=== PATIENT | female | born 1970 | race Caucasian/White ===

== ENCOUNTER 2020-06-26 16:55 | Inpatient (IN) | payer SELFPAY ==
--- NOTE | 2020-06-26 17:46 | ER Document Report ---
ED Medical Screen (RME) - General Chief Complaint: Chest Pain Stated Complaint: CHEST PAIN Time Seen by Provider: 06/26/20 17:39 - HPI Notes: 06/26/20 17:41 49-year-old female with a history of asthma and thalassemia presents to the emergency room for chest pain that started 2 days ago, last about 5 to 15 minutes, radiates down her arm goes to her neck and through her chest to her back. Pain is 4 out of 5. Patient states she has been expelled a pack a day for the last 30 years or so. Reports headache, nausea reports that she feels short of breath. Patient states she feels better if she eats something with her chest pain. Reports mother had 4 MIs and at 60 from a fatal MT, dad had an MT. Patient reports she did have a cholecystectomy, and a tubal ligation. Denies any trauma. States when she goes to the doctors usually her blood pressure is 140s 150s systolically. Patient does not take any blood pressure medication no history of diabetes or hypercholesterolemia I have greeted and performed a rapid initial assessment of this patient. A comprehensive ED assessment and evaluation of the patient, analysis of test results and completion of the medical decision making process will be conducted by additional ED providers. PHYSICAL EXAMINATION: GENERAL: Well-appearing, well-nourished and in no acute distress. HEAD: Atraumatic, normocephalic. EYES: Pupils equal round extraocular movements intact, conjunctiva are normal. NECK: Normal range of motion CV: s1, s2 regular LUNGS: Wheezing throughout Musculoskeletal: Normal range of motion NEUROLOGICAL: Normal speech, normal gait. SKIN: Warm, Dry, normal turgor, no rashes or lesions noted. 06/26/20 17:47 - Related Data Allergies/Adverse Reactions: codeine Allergy (Verified 06/26/20 17:34) erythromycin base Allergy (Verified 06/26/20 17:34) Penicillins Allergy (Verified 06/26/20 17:34) Past Medical History - Social History Chew tobacco use (# tins/day): No Drug Abuse: None Physical Exam - Vital signs Vitals: Temp Pulse Resp BP Pulse Ox 98.3 F 82 22 H 233/120 H 98 06/26/20 17:20 06/26/20 17:20 06/26/20 17:20 06/26/20 17:20 06/26/20 17:20 Course - Vital Signs Vital signs: Temp Pulse Resp BP Pulse Ox 98.3 F 82 22 H 233/120 H 98 06/26/20 17:20 06/26/20 17:20 06/26/20 17:20 06/26/20 17:20 06/26/20 17:20
--- NOTE | 2020-06-26 18:11 | RADIOLOGY REPORT (SQ) ---
EXAM DESCRIPTION: CHEST 2 VIEWS IMAGES COMPLETED DATE/TIME: 06/26/2020 6:04 pm REASON FOR STUDY: cp COMPARISON: None. EXAM PARAMETERS: NUMBER OF VIEWS: two views TECHNIQUE: Digital Frontal and Lateral radiographic views of the chest acquired. RADIATION DOSE: NA LIMITATIONS: none FINDINGS: LUNGS AND PLEURA: No opacities, masses or pneumothorax. No pleural effusion. MEDIASTINUM AND HILAR STRUCTURES: No masses or contour abnormalities. HEART AND VASCULAR STRUCTURES: Heart normal size. No evidence for failure. BONES: No acute findings. HARDWARE: None in the chest. OTHER: No other significant finding. IMPRESSION: NO ACUTE RADIOGRAPHIC FINDING IN THE CHEST. TECHNICAL DOCUMENTATION: JOB ID: [id number] 2010 [email or web address]- All Rights Reserved Reading location - IP/workstation name: [email or web address]
[2020-06-26 18:19] LABS: ABSOLUTE BASOPHILS # (AUTO) 0.1 10^3/uL (0.0-0.2); ABSOLUTE EOSINOPHILS # (AUTO) 0.2 10^3/uL (0.0-0.6); ABSOLUTE MONOCYTES (AUTO) 0.7 10^3/uL (0.1-1.4); ABSOLUTE NEUT (AUTO) 6.2 10^3/uL (1.7-8.2); BASOPHILS % (AUTO) 1.1 % (0-2); EOSINOPHILS % (AUTO) 2.2 % (0-6); HEMATOCRIT 41.1 % (36.0-47.0); HEMOGLOBIN 12.9 g/dL (12.0-15.5); LYMPHOCYTES % (AUTO) 22.2 % (13-45); MEAN CORPUSCULAR HGB CONC 31.5 g/dL (32.0-36.0); MONOCYTES % (AUTO) 7.1 % (3-13); PLATELET COUNT 200 10^3/uL (150-450); RED BLOOD COUNT 6.82 10^6/uL (3.72-5.28); RED CELL DISTRIBUTION WIDTH 17.2 % (11.5-14.0); SEGMENTED NEUTROPHILS % (AUTO) 67.4 % (42-78); TOTAL CELLS COUNTED % (AUTO) 100 %; WHITE BLOOD COUNT 9.1 10^3/uL (4.0-10.5)
[2020-06-26 18:38] LABS: ALBUMIN 4.3 g/dL (3.5-5.0); ALKALINE PHOSPHATASE 52 U/L (38-126); ANION GAP 6 (5-19); ASPARTATE AMINO TRANSFERASE 17 U/L (14-36); BILIRUBIN,DIRECT 0.1 mg/dL (0.0-0.4); BILIRUBIN,TOTAL 0.5 mg/dL (0.2-1.3); BLOOD UREA NITROGEN 12 mg/dL (7-20); CALCIUM 8.9 mg/dL (8.4-10.2); CARBON DIOXIDE 28 mmol/L (22-30); CHLORIDE 106 mmol/L (98-107); CREATINE KINASE 69 U/L (30-135); GLUCOSE 112 mg/dL (75-110); POTASSIUM 4.3 mmol/L (3.6-5.0); TOTAL PROTEIN 7.9 g/dL (6.3-8.2)
[2020-06-26 18:53] LABS: MEAN CORPUSCULAR VOLUME 60 fl (80-97)
[2020-06-26 18:55] LABS: ANISOCYTOSIS 1+
[2020-06-26 18:57] LABS: OVALOCYTES 1+; PLATELET COMMENT ADEQUATE; TARGET CELLS SLIGHT; TEAR DROP CELLS SLIGHT
[2020-06-26 19:20] LABS: CREATINE KINASE MB 0.89 ng/mL (<4.55); TROPONIN I 0.028 ng/mL
[2020-06-26] MEDS ORDERED: LABETALOL HCL INJ 20 MG/4 ML DISP.SYRIN IV ONE (19:35)
[2020-06-26] MEDS ORDERED: ONDANSETRON HCL INJ/PF 4 MG/2 ML SDV IV ONE ×2 (19:35→22:20)
[2020-06-26 19:56] LABS: APPEARANCE,URINE SLIGHTLY-CLOUDY; BILIRUBIN,URINE NEGATIVE (NEGATIVE); COLOR,URINE YELLOW; GLUCOSE, URINE NEGATIVE (NEGATIVE); KETONES,URINE NEGATIVE (NEGATIVE); PROTEIN,URINE 100 mg/dL (NEGATIVE); URINE SPECIFIC GRAVITY 1.018
--- NOTE | 2020-06-26 20:05 | EKG REPORT ---
SEVERITY:- ABNORMAL ECG - SINUS RHYTHM ABNRM R PROG, CONSIDER ASMI OR LEAD PLACEMENT NONSPECIFIC T ABNORMALITIES, LATERAL LEADS : Confirmed by: Lizett Mckeon MD 26-Jun-2020 20:04:47
--- NOTE | 2020-06-26 20:11 | ER Document Report ---
ED General - General Chief Complaint: Chest Pain Stated Complaint: CHEST PAIN Time Seen by Provider: 06/26/20 17:39 - HPI Notes: Chief complaint: Chest pain and headache History of present illness: 49-year-old female complains of 2-day history of ch est pain and intermittent dull headache. Patient complains of persistent squeezing discomfort center of her chest and left arm radiating through to back and says this is been waxing and waning in intensity over several days. Not related to exertion, breathing or movement. Also complains of persistent dull headache. No focal neurologic symptoms. Patient says she has not seen a doctor in "years". She notes she has had some intermittently elevated blood pressures in the past when she is checked this at [facility]. She is not on any treatment for this condition nor has she been in the past. She currently takes no prescription medications. She denies any known history of cardiac disease or stroke. Patient is a cigarette smoker. Family history is strongly positive for CAD and hypertension. Patient has no personal or familial history of thromboembolic disease. She has no personal history of high blood pressure. No history of diabetes. No history of hyperlipidemia. Rare consumption of alcohol. She admits occasional smoking marijuana. She specifically denies use of cocaine - Related Data Allergies/Adverse Reactions: codeine Allergy (Verified 06/26/20 17:34) erythromycin base Allergy (Verified 06/26/20 17:34) Penicillins Allergy (Verified 06/26/20 17:34) Past Medical History - General Information source: Patient, Friend - Yes could be just a minute I got to get a document here for forget what I am doing - Social History Smoking Status: Current Every Day Smoker Chew tobacco use (# tins/day): No Frequency of alcohol use: Occasional Drug Abuse: Marijuana Family History: CAD, Hypertension - Yet you need to go ahead and I have already asked him to do an IVC + Patient has homicidal ideation: No - Past Medical History Cardiac Medical History: Reports: None Pulmonary Medical History: Reports: None Neurological Medical History: Reports: None Endocrine Medical History: Denies: Hx Diabetes Mellitus Type 1, Hx Diabetes Mellitus Type 2 Malignancy Medical History: Reports: None GI Medical History: Reports: None Past Surgical History: Reports: Hx Cholecystectomy, Hx Tubal Ligation Review of Systems - Review of Systems Notes: Constitutional: Negative for fever. HENT: Negative for sore throat. Eyes: Negative for visual changes. Cardiovascular: As per HPI. Respiratory: Negative for shortness of breath. Gastrointestinal: Negative for abdominal pain, vomiting or diarrhea. Genitourinary: Negative for dysuria. Musculoskeletal: Negative for back pain. Skin: Negative for rash. Neurological: As per HPI. 10 point ROS negative except as marked above and in HPI. Physical Exam - Vital signs Vitals: Temp Pulse Resp BP Pulse Ox 98.3 F 82 22 H 233/120 H 98 06/26/20 17:20 06/26/20 17:20 06/26/20 17:20 06/26/20 17:20 06/26/20 17:20 - Notes Notes: GENERAL: Well-developed well-nourished appearing mildly uncomfortable. SKIN: Good turgor no rashes. HEAD: Normocephalic atraumatic. EYES: PERRLA. EOMI. Conjunctivae and sclerae clear. EARS: CANALS AND TMS CLEAR. NOSE: CLEAR. MOUTH: Moist mucosa. Good dentition. No stridor or edema. No drooling. NECK: Supple. No masses or thyromegaly. No adenopathy. Carotids 2+ without bruits. No JVD. BACK: Symmetrical without tenderness. CHEST: Respirations unlabored. Diffuse end expiratory wheezes bilaterally. HEART: Regular rhythm. No murmur gallop or rub. ABDOMEN: Soft nontender without masses, organomegaly or rebound. Bowel sounds normally active. No bruits. GENITALIA: Deferred. EXTREMITIES: No edema. No calf tenderness. Cap refill less than 1.5 seconds. Dorsalis pedis and posterior tibial pulses 3+ and symmetrical. NEUROLOGICAL: GCS 15. Alert and oriented x3. Normal gait. Fluent speech. Cranial nerves II through XII intact. Sensorimotor and cerebellar normal. Normal tone. PSYCHIATRIC: Appropriate affect. Course - Re-evaluation Re-evalutation: 06/27/20 00:56 Patient has significant coronary risk factors. EKG x2 shows no evidence of ST elevation GA. She has had 2- troponins. Her blood pressure worse severely elevated when she arrived she is not been on any treatment for this previously. She had values around 230/130. Her neurologic exam was normal but she is complaining of headache. Do noncontrast CT of the head which was negative. She also had some pain radiating into her back and for this reason she got a CTA of the chest. She had no evidence of dissection no pulmonary embolus. She received initially some labetalol and this had little influence on her blood pressure but did reduce her pulse rate in the 60s. She subsequently got some hydralazine IV. Again has had a little influence on her blood pressure. Her urine drug screen was remarkable for presence of THC there was no cocaine present. Patient subsequently was placed on IV nicardipine infusion. She responded well to this and dropped her systolic blood pressure to approximately 178. She experienced relief of her headache and her chest discomfort. We have subsequently been able to cut her back to 2.5 mg/h nicardipine infusion. We will speak with the ICU admission team regarding further care of this patient. - Vital Signs Vital signs: Temp Pulse Resp BP Pulse Ox 98.3 F 82 17 150/71 H 90 L 06/26/20 17:20 06/26/20 17:20 06/27/20 00:46 06/27/20 00:46 06/27/20 00:46 - Laboratory Result Diagrams: 06/26/20 17:52 06/26/20 17:52 Laboratory results interpreted by me: 06/26/20 06/26/20 06/26/20 17:52 17:52 19:40 RBC 6.82 H MCV 60 L MCH 19.0 L MCHC 31.5 L RDW 17.2 H Glucose 112 H Urine Protein 100 H Urine Urobilinogen 2.0 H - EKG Interpretation by Me Additional EKG results interpreted by me: 06/27/20 00:54 Twelve-lead EKG from 1702 hrs. Reviewed contemporaneously by me showing normal sinus rhythm with a rate of 86 and poor precordial R wave progression. She had nonspecific T wave changes. She had no significant ST elevation. There was no old tracing for comparison. Intervals were normal. Indication for study: Chest pain and hypertension. Second EKG was obtained and reviewed by me contemporaneously 2217 hrs. demon strating normal sinus rhythm with LVH and repolarization changes and a borderline QT prolongation of 486 ms. QRS axis 59 degrees. This was substantially unchanged from prior tracing. Indication for current study: Chest pain and hypertension. Critical Care Note - Critical Care Note Total time excluding time spent on procedures (mins): 65 - Multiple IV medications for BP and ultimately placed on IV nicardipine drip. Discharge - Discharge Clinical Impression: Hypertensive emergency without congestive heart failure Condition: Critical Disposition: ADMITTED INPATIENT Admitting Provider: Nusrat ([facility] Unit Admitted: ICU
[2020-06-26 20:15] LABS: URINE AMPHETAMINES SCREEN NEGATIVE; URINE BARBITURATES SCREEN NEGATIVE; URINE BENZODIAZEPINES SCREEN NEGATIVE; URINE COCAINE SCREEN NEGATIVE; URINE METHADONE SCREEN NEGATIVE; URINE PHENCYCLIDINE SCREEN NEGATIVE
[2020-06-26 20:19] LABS: URINE MARIJUANA (THC) SCREEN UNCONFIRMED POSITIVE
--- NOTE | 2020-06-26 20:38 | RADIOLOGY REPORT (SQ) ---
EXAM DESCRIPTION: RadLex: CT HEAD WITHOUT IV CONTRAST CLINICAL HISTORY: 49 years Female; [place]; TECHNIQUE: Noncontrast CT head. All CT scans at this facility use dose modulation, iterative reconstruction, and/or weight based dosing when appropriate to reduce radiation dose to as low as reasonably achievable. COMPARISON: None. FINDINGS: No acute hemorrhage or mass effect. No acute cortical edema. There is significant posterior fossa artifact. Distal carotid artery and left vertebral artery calcifications are noted. Visualized portions of paranasal sinuses and mastoids are clear. Visualized portions of the calvarium are within normal limits. IMPRESSION: 1. No acute hemorrhage or mass effect 2. Atherosclerosis
--- NOTE | 2020-06-26 20:44 | RADIOLOGY REPORT (SQ) ---
CLINICAL INDICATION: CP radiates to back, BP 223/130. . TECHNIQUE: CT arteriography was obtained of the chest with multiplanar MIP and/or 3-D angiographic reconstructions. This exam was performed according to our departmental dose-optimization program, which includes automated exposure control, adjustment of the mA and/or kV according to patient size and/or use of iterative reconstruction techniques. COMPARISON: None. CORRELATION: None. FINDINGS: Adequate contrast bolus. Average Hounsfield unit measurement within main pulmonary artery segment of 258. Artifact from venous opacification. Average Hounsfield unit measurement within aortic arch of 167 There is no evidence of pulmonary embolus. Thoracic aorta is of normal caliber. No aneurysm or dissection. The heart is of normal size. No pericardial effusion. No bulky mediastinal adenopathy. The lungs definite mild interstitial prominence is similar geographic distribution apicoposterior segment left upper lobe. Similar but less prominent changes right upper lobe. No dense consolidation. No effusion. No pneumothorax. Visualized abdominal contents demonstrate the gallbladder is surgically absent. Visualized bones are unremarkable. IMPRESSION: No evidence of pulmonary embolus. The aorta is of normal caliber without aneurysm or dissection. .
[2020-06-26] MEDS ORDERED: HYDRALAZINE HCL INJ/PF 20 MG/1 ML SDV IV ONE (21:17)
[2020-06-26] MEDS ORDERED: NICARDIPINE HCL RTU, ISO-OS 20 MG/200 ML RTUINJ IV PRN (22:11)
[2020-06-26] MEDS ORDERED: MORPHINE SULFATE 10 MG/ML INJ IV ONE (22:21)
[2020-06-27] MEDS ORDERED: IPRATROPIUM/ALBUTEROL 0.5-2.5 MG/3 ML AMPUL NEB ONE (01:43)
[2020-06-27] MEDS ORDERED: LISINOPRIL 10 MG TABLET PO ONE ×2 (01:45→13:07)
[2020-06-27] MEDS ORDERED: HYDRALAZINE HCL INJ/PF 20 MG/1 ML SDV IV PRN (02:07)
--- NOTE | 2020-06-27 02:17 | PDOC H&P ---
History of Present Illness Admission Date/PCP: 06/27/20 01:13 History of Present Illness: SHU GONZALES is a 49 year old female headache and general malaise and generalized nonspecific diffuse chest discomfort. Apparently have been going on for a couple of days. No fever. No cough or shortness of breath. No abdominal pain, nausea, or vomiting. She came to the ER and had extremely high blood pressure with a systolic in the 230s. CTA of the chest was negative for PE or dissection. EKG was suggestive of LVH but no signs of acute ischemia. I called the ICU and rather than admit the patient in the ICU decided to give her multiple doses of IV medications and even put her on a Cardene drip for several hours. When her blood pressure came down, they said she did not need to be in the ICU anymore. The hospitalist service was then consulted for admission. Past Medical History Cardiac Medical History: Reports: None Pulmonary Medical History: Reports: None Neurological Medical History: Reports: None Endocrine Medical History: Denies: Diabetes Mellitus Type 1, Diabetes Mellitus Type 2 Malignancy Medical History: Reports: None GI Medical History: Reports: None Past Surgical History Past Surgical History: Reports: Cholecystectomy, Tubal Ligation Social History Smoking Status: Current Every Day Smoker Electronic Cigarette use?: No Family History Family History: CAD, Hypertension - Yet you need to go ahead and I have already asked him to do an IVC + Parental Family History Reviewed: Yes Children Family History Reviewed: Yes Sibling(s) Family History Reviewed.: Yes Medication/Allergy Allergies/Adverse Reactions: codeine Allergy (Verified 06/26/20 17:34) erythromycin base Allergy (Verified 06/26/20 17:34) Penicillins Allergy (Verified 06/26/20 17:34) Review of Systems All systems: reviewed and no additional remarkable complaints except as stated - All systems were reviewed and were negative except as noted in the HPI Physical Exam Vital Signs: Temp Pulse Resp BP Pulse Ox 98.3 F 82 14 158/80 H 92 06/26/20 17:20 06/26/20 17:20 06/27/20 01:01 06/27/20 01:01 06/27/20 01:01 Intake & Output 06/25/20 06/26/20 06/27/20 06:59 06:59 06:59 Intake Total 27 Balance 27 Weight 79.5 kg General appearance: PRESENT: no acute distress, cooperative, disheveled, obese Head exam: PRESENT: atraumatic, normocephalic Eye exam: PRESENT: EOMI, PERRLA. ABSENT: conjunctival injection, nystagmus, scleral icterus Ear exam: PRESENT: normal external ear exam Mouth exam: PRESENT: moist, neck supple Teeth exam: PRESENT: poor dentation Throat exam: ABSENT: post pharyngeal erythema Neck exam: PRESENT: full ROM. ABSENT: carotid bruit, JVD, lymphadenopathy, meningismus, tenderness, thyromegaly Respiratory exam: PRESENT: clear to auscultation manfred, symmetrical, unlabored. ABSENT: accessory muscle use, chest wall tenderness, crackles, prolonged expiratory phas, rhonchi, tachypnea, wheezes Cardiovascular exam: PRESENT: RRR, +S1, +S2 Pulses: PRESENT: normal carotid pulses Vascular exam: PRESENT: normal capillary refill GI/Abdominal exam: PRESENT: normal bowel sounds, soft. ABSENT: distended, guarding, rebound, tenderness Extremities exam: ABSENT: clubbing, pedal edema Musculoskeletal exam: PRESENT: normal inspection. ABSENT: deformity Neurological exam: PRESENT: alert, awake, oriented to person, oriented to place, oriented to situation, CN II-XII grossly intact. ABSENT: motor sensory deficit Psychiatric exam: PRESENT: flat affect Skin exam: PRESENT: dry, warm Results Laboratory Results: 06/26/20 17:52 06/26/20 17:52 06/26/20 06/26/20 06/26/20 17:52 17:52 19:40 WBC 9.1 RBC 6.82 H Hgb 12.9 Hct 41.1 MCV 60 L MCH 19.0 L MCHC 31.5 L RDW 17.2 H Plt Count 200 Seg Neutrophils % 67.4 Sodium 140.4 Potassium 4.3 Chloride 106 Carbon Dioxide 28 Anion Gap 6 BUN 12 Creatinine 0.58 Est GFR ( Amer) > 60 Glucose 112 H Calcium 8.9 Total Bilirubin 0.5 AST 17 Alkaline Phosphatase 52 Total Protein 7.9 Albumin 4.3 Urine Color YELLOW Urine Appearance SLIGHTLY-CLOUDY Urine pH 7.0 Ur Specific Aldrich 1.018 Urine Protein 100 H Urine Glucose (UA) NEGATIVE Urine Ketones NEGATIVE Urine Blood NEGATIVE Urine RBC (Auto) 1 06/26/20 06/26/20 06/26/20 17:52 17:52 22:47 Creatine Kinase 69 CK-MB (CK-2) 0.89 Troponin I 0.028 0.030 Impressions: Chest X-Ray 06/26/20 17:39 IMPRESSION: NO ACUTE RADIOGRAPHIC FINDING IN THE CHEST. Chest/Abdomen CTA 06/26/20 17:46 IMPRESSION: No evidence of pulmonary embolus. The aorta is of normal caliber without aneurysm or dissection. . Head CT 06/26/20 19:34 IMPRESSION: 1. No acute hemorrhage or mass effect 2. Atherosclerosis Assessment and Plan - Diagnosis (1) Hypertensive emergency without congestive heart failure Is this a current diagnosis for this admission?: Yes Plan: After several doses of IV medications in several hours on the nicardipine drip, her blood pressure came down with a systolic of the 150s. Unfortunately, the antihypertensive effect of a nicardipine infusion can linger for up to 8 hours, so we will not know where her blood pressure has leveled off for some time. We will start her on some lisinopril and order some PRN hydralazine and see where her blood pressure settles. I encouraged her to quit smoking and get a primary care provider. She had some mild troponin elevation but with her LVH and sub stantially elevated blood pressure this is to be expected. No suspicion of acute coronary syndrome. - Time Time Spent with patient: 35 or more minutes Anticipated Discharge Disposition: Home, Self Care Anticipated Discharge Timeframe: within 48 hours
[2020-06-27] MEDS: ACETAMINOPHEN 325 MG TABLET PO PRN ×3 (09:02→20:00)
[2020-06-27] MEDS ORDERED: LISINOPRIL 10 MG TABLET PO SCH (10:00)
[2020-06-27] MEDS ORDERED: NIFEDIPINE 30 MG TAB.ER.24 PO SCH ×2 (10:15→12:00)
[2020-06-27] MEDS: NICOTINE 21 MG/24 HR PATCH.TD24 TD SCH (11:59)
--- NOTE | 2020-06-27 13:10 | Progress Note ---
Provider Note Provider Note: Patient admitted late this morning by Dr. Kennedy overnight. See H&P for full admission details. Patient seen and examined by me today as well. Blood pressure is persistently high today and seems to be climbing. I have added nifedipine and later in the morning also added chlorthalidone. I later increased lisinopril up to 20 mg daily with a now dose of 10 mg. We will continue closely monitoring blood pressure and making adjustments in oral regimen as needed. There is no role for IV blood pressure medications in her management at this time.
[2020-06-27] MEDS: CHLORTHALIDONE 25 MG TABLET PO SCH (13:26)
[2020-06-27] MEDS ORDERED: NIFEDIPINE 30 MG TAB.ER.24 PO ONE (14:28)
--- NOTE | 2020-06-27 17:53 | EKG REPORT ---
SEVERITY:- ABNORMAL ECG - SINUS RHYTHM PROBABLE LVH WITH SECONDARY REPOL ABNRM BORDERLINE PROLONGED QT INTERVAL : Confirmed by: Lizett Mckeon MD 27-Jun-2020 17:53:08
[2020-06-27] MEDS: HYDRALAZINE HCL 10 MG TABLET PO SCH ×2 (18:41→21:20)
[2020-06-28] MEDS: HYDRALAZINE HCL 25 MG TABLET PO SCH ×2 (00:23→05:07)
[2020-06-28 06:58] LABS: CHOLESTEROL 197.92 mg/dL (0-200); TRIGLYCERIDES 102 mg/dL (<150)
[2020-06-28 07:09] LABS: DIRECT LDL 123 mg/dL (<100)
[2020-06-28] MEDS: NIFEDIPINE 30 MG TAB.ER.24 PO SCH (09:03)
[2020-06-28] MEDS: ACETAMINOPHEN 325 MG TABLET PO PRN (09:03)
[2020-06-28] MEDS: NICOTINE 21 MG/24 HR PATCH.TD24 TD SCH (09:04)
[2020-06-28] MEDS: CHLORTHALIDONE 25 MG TABLET PO SCH (09:04)
[2020-06-28 09:22] LABS: ANION GAP 9 (5-19); BLOOD UREA NITROGEN 14 mg/dL (7-20); CALCIUM 9.6 mg/dL (8.4-10.2); CARBON DIOXIDE 24 mmol/L (22-30); CHLORIDE 105 mmol/L (98-107); GLUCOSE 105 mg/dL (75-110); POTASSIUM 4.1 mmol/L (3.6-5.0)
[2020-06-28] MEDS ORDERED: LEVOTHYROXINE SODIUM 0.025 MG TABLET PO ONE (09:30)
[2020-06-28] MEDS ORDERED: CHLORTHALIDONE 25 MG TABLET PO SCH (10:00)
[2020-06-28] MEDS ORDERED: LISINOPRIL 10 MG TABLET PO SCH (10:00)
[2020-06-28 10:07] LABS: ABSOLUTE BASOPHILS # (AUTO) 0.1 10^3/uL (0.0-0.2); ABSOLUTE EOSINOPHILS # (AUTO) 0.3 10^3/uL (0.0-0.6); ABSOLUTE LYMPHOCYTES (AUTO) 2.3 10^3/uL (0.5-4.7); ABSOLUTE MONOCYTES (AUTO) 0.6 10^3/uL (0.1-1.4); ABSOLUTE NEUT (AUTO) 5.4 10^3/uL (1.7-8.2); BASOPHILS % (AUTO) 1.4 % (0-2); EOSINOPHILS % (AUTO) 3.4 % (0-6); HEMATOCRIT 41.4 % (36.0-47.0); HEMOGLOBIN 13.1 g/dL (12.0-15.5); LYMPHOCYTES % (AUTO) 26.2 % (13-45); MEAN CORPUSCULAR HEMOGLOBIN 18.9 pg (27.0-33.4); MEAN CORPUSCULAR HGB CONC 31.5 g/dL (32.0-36.0); MEAN CORPUSCULAR VOLUME 60 fl (80-97); MONOCYTES % (AUTO) 6.9 % (3-13); PLATELET COUNT 169 10^3/uL (150-450); RED BLOOD COUNT 6.92 10^6/uL (3.72-5.28); RED CELL DISTRIBUTION WIDTH 17.1 % (11.5-14.0); SEGMENTED NEUTROPHILS % (AUTO) 62.1 % (42-78); TOTAL CELLS COUNTED % (AUTO) 100 %; WHITE BLOOD COUNT 8.6 10^3/uL (4.0-10.5)
[2020-06-28 10:27] LABS: PLATELET COMMENT ADEQUATE; PLATELET LARGE PRESENT
[2020-06-28 10:36] LABS: ANISOCYTOSIS 1+
[2020-06-28 10:37] LABS: TEAR DROP CELLS SLIGHT
[2020-06-28 10:39] LABS: OVALOCYTES 1+
--- NOTE | 2020-06-28 11:17 | RADIOLOGY REPORT (SQ) ---
EXAM DESCRIPTION: U/S LTD DUPLEX ART/LACHO FLOW IMAGES COMPLETED DATE/TIME: 06/28/2020 10:33 am REASON FOR STUDY: Suspected renal artery stenosis COMPARISON: None. TECHNIQUE: Realtime and static grayscale images acquired. Selected color Doppler, velocities and spe ctral images recorded. LIMITATIONS: None. FINDINGS: RIGHT KIDNEY: RENAL ARTERY VELOCITIES: 327.2 cm/sec. Segmental artery velocity 82.7 cm/sec. RENAL VEIN: Color doppler flow present, patent. VELOCITY RATIO: 4.15. Normal waveforms. KIDNEY: Normal size. No significant pathology. LEFT KIDNEY: RENAL ARTERY VELOCITIES: 135.4 cm/sec. Segmental artery velocity 71.8 cm/sec. RENAL VEIN: Color doppler flow present, patent. VELOCITY RATIO: 1.72. Normal waveforms. KIDNEY: Normal size. No significant pathology. BLADDER: Not imaged. OTHER: No other significant finding. IMPRESSION: Findings consistent with hemodynamically significant right renal artery stenosis. COMMENT: NORMAL RENAL ARTERY/AORTA VELOCITY RATIO IS LESS THAN OR EQUAL TO 3.5. TECHNICAL DOCUMENTATION: JOB ID: [id number] 2010 [employer]- All Rights Reserved Reading location - IP/workstation name: [email or web address]
[2020-06-28] MEDS ORDERED: HYDRALAZINE HCL 25 MG TABLET PO SCH (12:00)
[2020-06-28] MEDS: HYDRALAZINE HCL 50 MG TABLET PO SCH ×2 (12:25→17:23)
[2020-06-28] MEDS ORDERED: IPRATROPIUM/ALBUTEROL 0.5-2.5 MG/3 ML AMPUL NEB PRN (13:09)
--- NOTE | 2020-06-28 14:19 | PDOC PROGRESS REPORT ---
Subjective Progress Note for:: 06/28/20 Subjective:: Blood pressure still notably elevated but the trend is slowly coming down today. Order renal artery PVL which revealed hemodynamically significant right renal artery stenosis. I discussed the case with nephrology who stated the patient could have this corrected with angioplasty in [place] at [facility] as an outpatient procedure provided we can get the patient's blood pressure under control consistently enough for her to be discharged. Also of note, her TSH was elevated to 10 and T4 was lower limit normal. As this can cause severe abnormalities in blood pressure including uncontrolled hypertension, I have started her on low-dose Synthroid 25 mcg. Echocardiogram ordered but not resulted yet. I started nebulizer treatments and scheduled Breo to help with her very likely underlying COPD. Patient will need follow-up with PCP for all these problems after discharge. Her headache seems to be better and she has no new complaints today. Reason For Visit: HYPERTENSIVE URGENCY Physical Exam Vital Signs: Temp Pulse Resp BP Pulse Ox 98.2 F 75 18 162/85 H 94 06/28/20 10:37 06/28/20 10:37 06/28/20 10:37 06/28/20 10:37 06/28/20 10:37 Intake & Output 06/27/20 06/28/20 06/29/20 06:59 06:59 06:59 Intake Total 27 300 Balance 27 300 Weight 78.4 kg 77.5 kg General appearance: PRESENT: no acute distress, well-developed, well-nourished Head exam: PRESENT: atraumatic, normocephalic Eye exam: PRESENT: conjunctiva pink Ear exam: PRESENT: normal external ear exam Mouth exam: PRESENT: moist Neck exam: ABSENT: carotid bruit, JVD, lymphadenopathy, thyromegaly Respiratory exam: PRESENT: unlabored, wheezes. ABSENT: crackles, rales, rhonchi, tachypnea Cardiovascular exam: PRESENT: RRR. ABSENT: diastolic murmur, rubs, systolic murmur Pulses: PRESENT: normal dorsalis pedis pul Vascular exam: PRESENT: normal capillary refill GI/Abdominal exam: PRESENT: normal bowel sounds, soft. ABSENT: distended, guarding, mass, organolmegaly, rebound, tenderness Rectal exam: PRESENT: deferred Extremities exam: PRESENT: full ROM. ABSENT: calf tenderness, clubbing, pedal edema Musculoskeletal exam: PRESENT: ambulatory Neurological exam: PRESENT: alert, awake, oriented to person, oriented to place, oriented to time, oriented to situation Psychiatric exam: PRESENT: appropriate affect, normal mood Skin exam: PRESENT: dry, intact, warm Results Laboratory Results: 06/28/20 06:20 06/28/20 06:20 06/28/20 06/28/20 06/28/20 06:20 06:20 06:20 WBC 8.6 RBC 6.92 H Hgb 13.1 Hct 41.4 MCV 60 L MCH 18.9 L MCHC 31.5 L RDW 17.1 H Plt Count 169 Seg Neutrophils % 62.1 Sodium Potassium Chloride Carbon Dioxide Anion Gap BUN Creatinine Est GFR ( Amer) Glucose Calcium Triglycerides 102 Cholesterol 197.92 LDL Cholesterol Direct 123 H VLDL Cholesterol 20.0 HDL Cholesterol 48 TSH 10.00 H Free T4 06/28/20 06/28/20 06:20 06:20 WBC RBC Hgb Hct MCV MCH MCHC RDW Plt Count Seg Neutrophils % Sodium 138.3 Potassium 4.1 Chloride 105 Carbon Dioxide 24 Anion Gap 9 BUN 14 Creatinine 0.63 Est GFR ( Amer) > 60 Glucose 105 Calcium 9.6 Triglycerides Cholesterol LDL Cholesterol Direct VLDL Cholesterol HDL Cholesterol TSH Free T4 0.82 06/26/20 06/26/20 06/26/20 17:52 17:52 22:47 Creatine Kinase 69 CK-MB (CK-2) 0.89 Troponin I 0.028 0.030 Impressions: Chest X-Ray 06/26/20 17:39 IMPRESSION: NO ACUTE RADIOGRAPHIC FINDING IN THE CHEST. Chest/Abdomen CTA 06/26/20 17:46 IMPRESSION: No evidence of pulmonary embolus. The aorta is of normal caliber without aneurysm or dissection. . Head CT 06/26/20 19:34 IMPRESSION: 1. No acute hemorrhage or mass effect 2. Atherosclerosis Vascular Ultrasound 06/28/20 00:00 IMPRESSION: Findings consistent with hemodynamically significant right renal artery stenosis. Assessment and Plan - Diagnosis (1) Hypertensive emergency without congestive heart failure Is this a current diagnosis for this admission?: Yes Plan: Started on IV Cardene on admission and transitioned off of this to a very small dose of lisinopril which was inadequate for control and meds were increased many times thereafter. Currently requiring 4 antihypertensives at rising doses BP trends significantly improved Aldosterone/renin ratio pending Possible hypothyroidism component, started Synthroid at low dose (2) Renal artery stenosis Is this a current diagnosis for this admission?: Yes Plan: Seen on renal artery ultrasound, right has hemodynamically significant stenosis Needs outpatient referral to vascular surgery in [facility] for possible angioplasty Likely the source of severe uncontrolled hypertension (3) COPD (chronic obstructive pulmonary disease) Is this a current diagnosis for this admission?: Yes (4) Tobacco abuse Is this a current diagnosis for this admission?: Yes (5) Hypothyroidism Is this a current diagnosis for this admission?: Yes Plan: TSH 10, T4 lower limit normal Start Synthroid 25 mcg - Time Time Spent with patient: 25-34 minutes Medications reviewed and adjusted accordingly: Yes Anticipated Discharge Disposition: Home, Self Care Anticipated Discharge Timeframe: within 48 hours - Inpatient Certification Based on my medical assessment, after consideration of the patient's comorbidities, presenting symptoms, or acuity I expect that the services needed warrant INPATIENT care.: Yes I certify that my determination is in accordance with my understanding of Medicare's requirements for reasonable and necessary INPATIENT services [42 CFR 412.3e].: Yes Medical Necessity: Significant Comorbidiites Make Outpatient Treatment Too Risky, Need Close Monitoring Due to Risk of Patient Decompensation, Risk of Complication if Not Cared For in Hospital, Risk of Diagnosis Which Will Require Inpatient Eval/Care/Monitoring
[2020-06-28] MEDS: FLUTICASONE/VILANTEROL 100-25 MCG/DOSE IH SCH (15:55)
--- NOTE | 2020-06-28 22:57 | EKG REPORT ---
SEVERITY:- ABNORMAL ECG - SINUS RHYTHM CONSIDER LEFT VENTRICULAR HYPERTROPHY ANTERIOR Q WAVES, POSSIBLY DUE TO LVH : Confirmed by: Lizett Mckeon MD 28-Jun-2020 22:57:15
[2020-06-29] MEDS: HYDRALAZINE HCL 50 MG TABLET PO SCH ×4 (00:04→21:07)
--- NOTE | 2020-06-29 00:56 | XCELERA REPORT ---
[address] [address] Transthoracic Echocardiogram Report Name: SHU GONZALES Age: 49 yrs Gender: Female : 1970 Patient Status: Inpatient Patient Location: [address] [place] [address] Study Date: 06/28/2020 02:22 PM Height: 65 in Weight: 170 lb BSA: 1.8 m2 Procedure: A two-dimensional transthoracic echocardiogram with color flow and Doppler was performed. Study Quality: Fair. Reason For Study: HTN Urgency History: HTN Urgency. Ordering Physician: AMANDA MARSH Performed By: Loraine Boateng Interpretation Summary The left ventricle is normal in size. There is mild to moderate concentric left ventricular hypertrophy. LV EF is 70% Left ventricular systolic function is normal. Doppler measurements suggest impaired left ventricular relaxation, which is associated with grade I/IV or mild diastolic dysfunction The left ventricular wall motion is normal. There is no thrombus. No ASD ,VSD , or PFO seen. The right ventricle is normal in size and function. The right atrium is normal. The left atrial size is normal. There is no evidence of mitral valve prolapse. There is no vegetation seen on the mitral valve. There is no mitral valve stenosis. There is a trace amount of mitral regurgitation There is no aortic valvular vegetation. There is no aortic valve stenosis There is aortic sclerosis without aortic stenosis. There is no LVOT obstruction. No aortic regurgitation is present. There is no tricuspid stenosis. There is a trace amount of tricuspid regurgitation Tricuspid regurgitation jet envelope not well defined to measure RV systolic pressure accurately. There is no pulmonic valvular stenosis. There is no pulmonic valvular regurgitation. The aortic root is normal size. The inferior vena cava appeared normal and decreased > 50% with respiration (RAP 5-10 mmHg) There is no pericardial effusion. MMode/2D Measurements & Calculations RVDd: 2.7 cm LVIDd: 4.6 cm FS: 42.4 % Ao root diam: 2.6 cm IVSd: 1.6 cm LVIDs: 2.6 cm EDV(Teich): 96.6 ml Ao root area: 5.4 cm2 LVPWd: 1.2 cm ESV(Teich): 25.5 ml EF(Teich): 73.6 % Doppler Measurements & Calculations MV E max jeffry: MV dec slope: Ao V2 max: LV V1 max P.6 cm/sec 192.9 cm/sec2 154.6 cm/sec 6.2 mmHg MV A max jeffry: MV dec time: 0.29 secAo max PG: LV V1 max: 58.3 cm/sec 9.6 mmHg 124.1 cm/sec MV E/A: 0.95 PA V2 max: 101.9 cm/sec PA max P.2 mmHg Left Ventricle The left ventricle is normal in size. There is mild to moderate concentric left ventricular hypertrophy. LV EF is 70%. Left ventricular systolic function is normal. Doppler measurements suggest impaired left ventricular relaxation, which is associated with grade I/IV or mild diastolic dysfunction. The left ventricular wall motion is normal. There is no thrombus. No ASD ,VSD , or PFO seen. Right Ventricle The right ventricle is normal in size and function. Atria The right atrium is normal. The left atrial size is normal. Mitral Valve There is no evidence of mitral valve prolapse. There is no vegetation seen on the mitral valve. There is no mitral valve stenosis. There is a trace amount of mitral regurgitation. Aortic Valve There is no aortic valvular vegetation. There is no aortic valve stenosis. There is aortic sclerosis without aortic stenosis. There is no LVOT obstruction. No aortic regurgitation is present. Tricuspid Valve There is no tricuspid stenosis. There is a trace amount of tricuspid regurgitation. Tricuspid regurgitation jet envelope not well defined to measure RV systolic pressure accurately. Pulmonic Valve There is no pulmonic valvular stenosis. There is no pulmonic valvular regurgitation. Great Vessels The aortic root is normal size. The inferior vena cava appeared normal and decreased > 50% with respiration (RAP 5-10 mmHg). Effusions There is no pericardial effusion. : AMANDA MARSH Lakshmi
[2020-06-29] MEDS: LEVOTHYROXINE SODIUM 0.025 MG TABLET PO SCH (05:34)
[2020-06-29] MEDS: NIFEDIPINE 30 MG TAB.ER.24 PO SCH (09:32)
[2020-06-29] MEDS: NICOTINE 21 MG/24 HR PATCH.TD24 TD SCH (09:33)
[2020-06-29] MEDS: FLUTICASONE/VILANTEROL 100-25 MCG/DOSE IH SCH (09:33)
[2020-06-29] MEDS: CHLORTHALIDONE 25 MG TABLET PO SCH (09:33)
[2020-06-29] MEDS: ACETAMINOPHEN 325 MG TABLET PO PRN (09:34)
[2020-06-29] MEDS ORDERED: CLONIDINE 0.2 MG/24 HR PATCH.TDWK TD SCH (10:00)
[2020-06-29] MEDS ORDERED: LISINOPRIL 10 MG TABLET PO SCH (10:00)
--- NOTE | 2020-06-29 10:04 | PDOC PROGRESS REPORT ---
Subjective Progress Note for:: 06/29/20 Subjective:: 49 year old female headache and general malaise and generalized nonspecific diffuse chest discomfort. Apparently have been going on for a couple of days. No fever. No cough or shortness of breath. No abdominal pain, nausea, or vomiting. She came to the ER and had extremely high blood pressure with a systolic in the 230s. CTA of the chest was negative for PE or dissection. EKG was suggestive of LVH but no signs of acute ischemia. I called the ICU and rather than admit the patient in the ICU decided to give her multiple doses of IV medications and even put her on a Cardene drip for several hours. When her blood pressure came down, they said she did not need to be in the ICU anymore. The hospitalist service was then consulted for admission. Blood pressure still notably elevated but the trend is slowly coming down today. Order renal artery PVL which revealed hemodynamically significant right renal artery stenosis. I discussed the case with nephrology who stated the patient could have this corrected with angioplasty in [place] at [facility] as an outpatient procedure provided we can get the patient's blood pressure under control consistently enough for her to be discharged. Also of note, her TSH was elevated to 10 and T4 was lower limit normal. As this can cause severe abnormalities in blood pressure including uncontrolled hypertension, I have started her on low-dose Synthroid 25 mcg. Echocardiogram ordered but not resulted yet. I started nebulizer treatments and scheduled Breo to help with her very likely underlying COPD. Patient will need follow-up with PCP for all these problems after discharge. Her headache seems to be better and she has no new complaints today.\ 06/29/2020-patient is comfortably in the bed communicating well. Latest blood pressure is 180/96 plan is to increase hydralazine 200 mg every 8 hours, l isinopril 40 mg p.o. daily, clonidine patch is added. Patient has a right-sided renal artery stenosis. Reason For Visit: HYPERTENSIVE URGENCY Physical Exam Vital Signs: Temp Pulse Resp BP Pulse Ox 97.4 F 76 17 180/96 H 95 06/29/20 08:04 06/29/20 08:04 06/29/20 08:04 06/29/20 08:04 06/29/20 08:04 Intake & Output 06/28/20 06/29/20 06/30/20 06:59 06:59 06:59 Intake Total 300 960 Balance 300 960 Weight 77.5 kg 76.9 kg General appearance: PRESENT: no acute distress, well-developed Head exam: PRESENT: atraumatic Eye exam: PRESENT: PERRLA Mouth exam: PRESENT: moist, tongue midline Neck exam: ABSENT: carotid bruit, JVD, lymphadenopathy, thyromegaly Respiratory exam: PRESENT: decreased breath sounds Cardiovascular exam: PRESENT: RRR. ABSENT: diastolic murmur, rubs, systolic murmur GI/Abdominal exam: PRESENT: other - Abdominal bruit present Rectal exam: PRESENT: deferred Extremities exam: PRESENT: full ROM. ABSENT: calf tenderness, clubbing, pedal edema Neurological exam: PRESENT: alert, awake, oriented to person, oriented to place, oriented to time, oriented to situation, CN II-XII grossly intact. ABSENT: motor sensory deficit Psychiatric exam: PRESENT: appropriate affect, normal mood. ABSENT: homicidal ideation, suicidal ideation Results Laboratory Results: 06/28/20 06:20 06/28/20 06:20 06/28/20 06/28/20 06:20 06:20 WBC 8.6 RBC 6.92 H Hgb 13.1 Hct 41.4 MCV 60 L MCH 18.9 L MCHC 31.5 L RDW 17.1 H Plt Count 169 Seg Neutrophils % 62.1 Free T4 0.82 06/26/20 06/26/20 06/26/20 17:52 17:52 22:47 Creatine Kinase 69 CK-MB (CK-2) 0.89 Troponin I 0.028 0.030 Impressions: Chest X-Ray 06/26/20 17:39 IMPRESSION: NO ACUTE RADIOGRAPHIC FINDING IN THE CHEST. Chest/Abdomen CTA 06/26/20 17:46 IMPRESSION: No evidence of pulmonary embolus. The aorta is of normal caliber without aneurysm or dissection. . Head CT 06/26/20 19:34 IMPRESSION: 1. No acute hemorrhage or mass effect 2. Atherosclerosis Vascular Ultrasound 06/28/20 00:00 IMPRESSION: Findings consistent with hemodynamically significant right renal artery stenosis. Assessment and Plan - Diagnosis (1) Hypertensive emergency without congestive heart failure Is this a current diagnosis for this admission?: Yes Plan: Started on IV Cardene on admission and transitioned off of this to a very small dose of lisinopril which was inadequate for control and meds were increased many times thereafter. Currently requiring 4 antihypertensives at rising doses BP trends significantly improved Aldosterone/renin ratio pending Possible hypothyroidism component, started Synthroid at low dose 06/29/2020-patient blood pressure is still high 180/96 this morning. Patient has right-sided renal artery stenosis. Patient is on hydralazine 50 mg p.o. every 6 hours, lisinopril 20 mg p.o. daily, nifedipine 60 mg p.o. daily, chlorthalidone 25 mg p.o. daily. Plan is to add clonidine patch q. weekly, to increase hydralazine 100 mg p.o. 3 times daily, to increase lisinopril to 40 mg daily. And is to continue to closely monitor the blood pressures at this time. (2) Renal artery stenosis Is this a current diagnosis for this admission?: Yes Plan: Seen on renal artery ultrasound, right has hemodynamically significant stenosis Needs outpatient referral to vascular surgery in [facility] for possible angioplasty Likely the source of severe uncontrolled hypertension 06/29/2020-blood pressure is still high despite being on 4 antihypertensives. Clonidine patch is added today, lisinopril dose is increased to 40 mg p.o. daily, hydralazine dose is increased to 100 mg every 8 hours. Plan is to closely monitor the blood pressures at this time. As per nephrology patient needs to see vascular surgeon as an outpatient in [place]. (3) Hypothyroidism Is this a current diagnosis for this admission?: Yes Plan: TSH 10, T4 lower limit normal Start Synthroid 25 mcg (4) Tobacco abuse Is this a current diagnosis for this admission?: No Plan: 06/29/2020-patient is a chronic daily day smoker smoking counseling was provided for more than 15 minutes. - Time Anticipated Discharge Disposition: Home, Self Care Anticipated Discharge Timeframe: within 72 hours
[2020-06-29] MEDS: DOCUSATE SODIUM 100 MG CAPSULE PO PRN (21:07)
[2020-06-30] MEDS: HYDRALAZINE HCL 50 MG TABLET PO SCH ×3 (05:24→22:30)
[2020-06-30] MEDS: LEVOTHYROXINE SODIUM 0.025 MG TABLET PO SCH (05:25)
[2020-06-30 06:37] LABS: ABSOLUTE BASOPHILS # (AUTO) 0.1 10^3/uL (0.0-0.2); ABSOLUTE EOSINOPHILS # (AUTO) 0.2 10^3/uL (0.0-0.6); ABSOLUTE LYMPHOCYTES (AUTO) 2.2 10^3/uL (0.5-4.7); ABSOLUTE MONOCYTES (AUTO) 0.8 10^3/uL (0.1-1.4); BASOPHILS % (AUTO) 1.3 % (0-2); EOSINOPHILS % (AUTO) 2.7 % (0-6); HEMATOCRIT 41.3 % (36.0-47.0); HEMOGLOBIN 13.4 g/dL (12.0-15.5); LYMPHOCYTES % (AUTO) 26.5 % (13-45); MEAN CORPUSCULAR HEMOGLOBIN 19.1 pg (27.0-33.4); MEAN CORPUSCULAR HGB CONC 32.6 g/dL (32.0-36.0); MEAN CORPUSCULAR VOLUME 59 fl (80-97); MONOCYTES % (AUTO) 9.7 % (3-13); PLATELET COUNT 179 10^3/uL (150-450); RED BLOOD COUNT 7.04 10^6/uL (3.72-5.28); RED CELL DISTRIBUTION WIDTH 17.1 % (11.5-14.0); SEGMENTED NEUTROPHILS % (AUTO) 59.8 % (42-78); TOTAL CELLS COUNTED % (AUTO) 100 %; WHITE BLOOD COUNT 8.3 10^3/uL (4.0-10.5)
[2020-06-30 06:53] LABS: ANISOCYTOSIS 1+; OVALOCYTES 1+; PLATELET COMMENT ADEQUATE; POLYCHROMASIA 1+; TEAR DROP CELLS 1+
[2020-06-30] MEDS: ACETAMINOPHEN 325 MG TABLET PO PRN (07:55)
[2020-06-30 08:23] LABS: ANION GAP 9 (5-19)
[2020-06-30 08:27] LABS: ALBUMIN 4.4 g/dL (3.5-5.0); ALKALINE PHOSPHATASE 46 U/L (38-126); ASPARTATE AMINO TRANSFERASE 19 U/L (14-36); BILIRUBIN,DIRECT 0.1 mg/dL (0.0-0.4); BILIRUBIN,TOTAL 0.6 mg/dL (0.2-1.3); BLOOD UREA NITROGEN 41 mg/dL (7-20); CALCIUM 9.5 mg/dL (8.4-10.2); CARBON DIOXIDE 23 mmol/L (22-30); CHLORIDE 104 mmol/L (98-107); GLUCOSE 104 mg/dL (75-110); POTASSIUM 4.6 mmol/L (3.6-5.0); TOTAL PROTEIN 7.9 g/dL (6.3-8.2)
--- NOTE | 2020-06-30 08:54 | PDOC PROGRESS REPORT ---
Subjective Progress Note for:: 06/30/20 Subjective:: 49 year old female headache and general malaise and generalized nonspecific diffuse chest discomfort. Apparently have been going on for a couple of days. No fever. No cough or shortness of breath. No abdominal pain, nausea, or vomiting. She came to the ER and had extremely high blood pressure with a systolic in the 230s. CTA of the chest was negative for PE or dissection. EKG was suggestive of LVH but no signs of acute ischemia. I called the ICU and rather than admit the patient in the ICU decided to give her multiple doses of IV medications and even put her on a Cardene drip for several hours. When her blood pressure came down, they said she did not need to be in the ICU anymore. The hospitalist service was then consulted for admission. Blood pressure still notably elevated but the trend is slowly coming down today. Order renal artery PVL which revealed hemodynamically significant right renal artery stenosis. I discussed the case with nephrology who stated the patient could have this corrected with angioplasty in [place] at [facility] as an outpatient procedure provided we can get the patient's blood pressure under control consistently enough for her to be discharged. Also of note, her TSH was elevated to 10 and T4 was lower limit normal. As this can cause severe abnormalities in blood pressure including uncontrolled hypertension, I have started her on low-dose Synthroid 25 mcg. Echocardiogram ordered but not resulted yet. I started nebulizer treatments and scheduled Breo to help with her very likely underlying COPD. Patient will need follow-up with PCP for all these problems after discharge. Her headache seems to be better and she has no new complaints today.\ 06/29/2020-patient is comfortably in the bed communicating well. Latest blood pressure is 180/96 plan is to increase hydralazine 200 mg every 8 hours, l isinopril 40 mg p.o. daily, clonidine patch is added. Patient has a right-sided renal artery stenosis. 06/30/20-patient blood pressure is improved to 164/76. Pulse rate is 67. But creatinine jumped from 0.63 to 1.38. Presently on lisinopril 40 mg p.o. daily plan is to change the medications to 20 mg p.o. twice daily and to recheck the creatinine tomorrow. If the creatinine is continued to trending up may be lisinopril need to be discontinued. Patient is comfortably in the bed communicating well complaining of headache receiving Tylenol. No acute events in the last 24 hours. Reason For Visit: HYPERTENSIVE URGENCY Physical Exam Vital Signs: Temp Pulse Resp BP Pulse Ox 97.1 F 68 15 136/62 H 98 06/30/20 07:26 06/30/20 07:26 06/30/20 07:26 06/30/20 07:26 06/30/20 07:26 Intake & Output 06/29/20 06/30/20 07/01/20 06:59 06:59 06:59 Intake Total 960 700 Balance 960 700 Weight 76.9 kg 77.4 kg General appearance: PRESENT: no acute distress, well-developed Head exam: PRESENT: atraumatic Eye exam: PRESENT: PERRLA Mouth exam: PRESENT: moist, tongue midline Teeth exam: PRESENT: poor dentation Neck exam: ABSENT: carotid bruit, JVD, lymphadenopathy, thyromegaly Respiratory exam: PRESENT: decreased breath sounds Cardiovascular exam: PRESENT: RRR. ABSENT: diastolic murmur, rubs, systolic murmur GI/Abdominal exam: PRESENT: normal bowel sounds, soft, other - Abdominal bruit present.. ABSENT: distended, guarding, mass, organolmegaly, rebound, tenderness Rectal exam: PRESENT: deferred Extremities exam: PRESENT: full ROM. ABSENT: calf tenderness, clubbing, pedal edema Neurological exam: PRESENT: alert, awake, oriented to person, oriented to place, oriented to time, oriented to situation, CN II-XII grossly intact. ABSENT: motor sensory deficit Psychiatric exam: PRESENT: appropriate affect, normal mood. ABSENT: homicidal ideation, suicidal ideation Results Laboratory Results: 06/30/20 05:40 06/30/20 05:40 06/30/20 06/30/20 05:40 05:40 WBC 8.3 RBC 7.04 H Hgb 13.4 Hct 41.3 MCV 59 L MCH 19.1 L MCHC 32.6 RDW 17.1 H Plt Count 179 Seg Neutrophils % 59.8 Sodium 136.3 L Potassium 4.6 Chloride 104 Carbon Dioxide 23 Anion Gap 9 BUN 41 H Creatinine 1.38 H Est GFR ( Amer) 49 L Glucose 104 Calcium 9.5 Total Bilirubin 0.6 AST 19 Alkaline Phosphatase 46 Total Protein 7.9 Albumin 4.4 06/26/20 06/26/20 06/26/20 17:52 17:52 22:47 Creatine Kinase 69 CK-MB (CK-2) 0.89 Troponin I 0.028 0.030 Impressions: Chest X-Ray 06/26/20 17:39 IMPRESSION: NO ACUTE RADIOGRAPHIC FINDING IN THE CHEST. Chest/Abdomen CTA 06/26/20 17:46 IMPRESSION: No evidence of pulmonary embolus. The aorta is of normal caliber without aneurysm or dissection. . Head CT 06/26/20 19:34 IMPRESSION: 1. No acute hemorrhage or mass effect 2. Atherosclerosis Vascular Ultrasound 06/28/20 00:00 IMPRESSION: Findings consistent with hemodynamically significant right renal artery stenosis. Assessment and Plan - Diagnosis (1) Hypertensive emergency without congestive heart failure Is this a current diagnosis for this admission?: Yes Plan: Started on IV Cardene on admission and transitioned off of this to a very small dose of lisinopril which was inadequate for control and meds were increased many times thereafter. Currently requiring 4 antihypertensives at rising doses BP trends significantly improved Aldosterone/renin ratio pending Possible hypothyroidism component, started Synthroid at low dose 06/29/2020-patient blood pressure is still high 180/96 this morning. Patient has right-sided renal artery stenosis. Patient is on hydralazine 50 mg p.o. every 6 hours, lisinopril 20 mg p.o. daily, nifedipine 60 mg p.o. daily, chlorthalidone 25 mg p.o. daily. Plan is to add clonidine patch q. weekly, to increase hydralazine 100 mg p.o. 3 times daily, to increase lisinopril to 40 mg daily. And is to continue to closely monitor the blood pressures at this time. 06/30/2020-today's blood pressure is 164/78. Presently on hydralazine 100 mg p.o. 3 times daily, lisinopril 40 mg daily, nifedipine 60 mg p.o. daily, chlorthalidone 25 mg p.o. daily, clonidine 0.1 mg patch q. weekly. Creatinine increased from 0.63-1.38 today. Plan is to change her lisinopril to 20 mg p.o. twice daily. If the creatinine is continued to trend up may be we have to discontinue lisinopril. Plan is to consult nephrology tomorrow. (2) Renal artery stenosis Is this a current diagnosis for this admission?: Yes Plan: Seen on renal artery ultrasound, right has hemodynamically significant stenosis Needs outpatient referral to vascular surgery in [facility] for possible angioplasty Likely the source of severe uncontrolled hypertension 06/29/2020-blood pressure is still high despite being on 4 antihypertensives. Clonidine patch is added today, lisinopril dose is increased to 40 mg p.o. daily, hydralazine dose is increased to 100 mg every 8 hours. Plan is to closely monitor the blood pressures at this time. As per nephrology patient tiffani ds to see vascular surgeon as an outpatient in [place]. 06/30/2020-this morning blood pressure is 164/76. Patient is on 5 antihypertensives. Creatinine bumped from 0.63 to 1.38 today. Plan is to recheck the labs tomorrow. (3) Hypothyroidism Is this a current diagnosis for this admission?: Yes Plan: TSH 10, T4 lower limit normal Start Synthroid 25 mcg 06/30/2020-TSH is 10 and she is on Synthyroid 25 mcg p.o. daily. (4) Tobacco abuse Is this a current diagnosis for this admission?: No Plan: 06/29/2020-patient is a chronic daily day smoker smoking counseling was provided for more than 15 minutes. - Time Anticipated Discharge Disposition: Home, Self Care Anticipated Discharge Timeframe: within 72 hours
[2020-06-30] MEDS: CHLORTHALIDONE 25 MG TABLET PO SCH (09:10)
[2020-06-30] MEDS: NIFEDIPINE 30 MG TAB.ER.24 PO SCH (09:10)
[2020-06-30] MEDS: LISINOPRIL 10 MG TABLET PO SCH ×2 (09:10→17:39)
[2020-06-30] MEDS: DOCUSATE SODIUM 100 MG CAPSULE PO PRN (09:10)
[2020-06-30] MEDS: FLUTICASONE/VILANTEROL 100-25 MCG/DOSE IH SCH (09:12)
[2020-06-30] MEDS: NICOTINE 21 MG/24 HR PATCH.TD24 TD SCH (09:12)
[2020-06-30] MEDS ORDERED: MAGNESIUM CITRATE 296 ML BOTTLE PO ONE (17:00)
[2020-06-30] MEDS ORDERED: ONDANSETRON HCL INJ/PF 4 MG/2 ML SDV IV PRN (17:51)
[2020-07-01] MEDS: LEVOTHYROXINE SODIUM 0.025 MG TABLET PO SCH (06:00)
[2020-07-01] MEDS: HYDRALAZINE HCL 50 MG TABLET PO SCH ×3 (06:00→21:13)
[2020-07-01 06:46] LABS: ALBUMIN 4.3 g/dL (3.5-5.0); ALKALINE PHOSPHATASE 43 U/L (38-126); ANION GAP 9 (5-19); ASPARTATE AMINO TRANSFERASE 19 U/L (14-36); BILIRUBIN,TOTAL 0.5 mg/dL (0.2-1.3); BLOOD UREA NITROGEN 50 mg/dL (7-20); CALCIUM 9.1 mg/dL (8.4-10.2); CARBON DIOXIDE 24 mmol/L (22-30); CHLORIDE 103 mmol/L (98-107); GLUCOSE 98 mg/dL (75-110); POTASSIUM 4.6 mmol/L (3.6-5.0); TOTAL PROTEIN 7.8 g/dL (6.3-8.2)
--- NOTE | 2020-07-01 08:53 | PDOC PROGRESS REPORT ---
Subjective Progress Note for:: 07/01/20 Subjective:: 49 year old female headache and general malaise and generalized nonspecific diffuse chest discomfort. Apparently have been going on for a couple of days. No fever. No cough or shortness of breath. No abdominal pain, nausea, or vomiting. She came to the ER and had extremely high blood pressure with a systolic in the 230s. CTA of the chest was negative for PE or dissection. EKG was suggestive of LVH but no signs of acute ischemia. I called the ICU and rather than admit the patient in the ICU decided to give her multiple doses of IV medications and even put her on a Cardene drip for several hours. When her blood pressure came down, they said she did not need to be in the ICU anymore. The hospitalist service was then consulted for admission. Blood pressure still notably elevated but the trend is slowly coming down today. Order renal artery PVL which revealed hemodynamically significant right renal artery stenosis. I discussed the case with nephrology who stated the patient could have this corrected with angioplasty in [place] at [facility] as an outpatient procedure provided we can get the patient's blood pressure under control consistently enough for her to be discharged. Also of note, her TSH was elevated to 10 and T4 was lower limit normal. As this can cause severe abnormalities in blood pressure including uncontrolled hypertension, I have started her on low-dose Synthroid 25 mcg. Echocardiogram ordered but not resulted yet. I started nebulizer treatments and scheduled Breo to help with her very likely underlying COPD. Patient will need follow-up with PCP for all these problems after discharge. Her headache seems to be better and she has no new complaints today.\ 06/29/2020-patient is comfortably in the bed communicating well. Latest blood pressure is 180/96 plan is to increase hydralazine 200 mg every 8 hours, l isinopril 40 mg p.o. daily, clonidine patch is added. Patient has a right-sided renal artery stenosis. 06/30/20-patient blood pressure is improved to 164/76. Pulse rate is 67. But creatinine jumped from 0.63 to 1.38. Presently on lisinopril 40 mg p.o. daily plan is to change the medications to 20 mg p.o. twice daily and to recheck the creatinine tomorrow. If the creatinine is continued to trending up may be lisinopril need to be discontinued. Patient is comfortably in the bed communicating well complaining of headache receiving Tylenol. No acute events in the last 24 hours. 07/01/2020-latest blood pressure is 118/74 with pulse rate of 88. Creatinine is continued to trend up. Latest creatinine is 1.74. Plan is to decrease the lisinopril to 5 mg p.o. twice daily. To recheck the labs tomorrow. Patient is willing to stay until tomorrow. Today after receiving mag citrate she vomited one time. Comfortably in the bed communicating well not in distress. Reason For Visit: HYPERTENSIVE URGENCY Physical Exam Vital Signs: Temp Pulse Resp BP Pulse Ox 97.6 F 70 15 118/74 95 07/01/20 03:42 07/01/20 07:00 07/01/20 03:42 07/01/20 03:42 07/01/20 03:42 Intake & Output 06/30/20 07/01/20 07/02/20 06:59 06:59 06:59 Intake Total 700 345 Balance 700 345 Weight 77.4 kg 75 kg General appearance: PRESENT: no acute distress, well-developed Head exam: PRESENT: atraumatic Eye exam: PRESENT: PERRLA Mouth exam: PRESENT: moist, tongue midline Neck exam: ABSENT: carotid bruit, JVD, lymphadenopathy, thyromegaly Respiratory exam: PRESENT: clear to auscultation manfred. ABSENT: rales, rhonchi, wheezes Cardiovascular exam: PRESENT: RRR. ABSENT: diastolic murmur, rubs, systolic murmur GI/Abdominal exam: PRESENT: normal bowel sounds, soft. ABSENT: distended, g uarding, mass, organolmegaly, rebound, tenderness Rectal exam: PRESENT: deferred Extremities exam: PRESENT: full ROM. ABSENT: calf tenderness, clubbing, pedal edema Neurological exam: PRESENT: alert, awake, oriented to person, oriented to place, oriented to time, oriented to situation, CN II-XII grossly intact. ABSENT: mo tor sensory deficit Psychiatric exam: PRESENT: appropriate affect, normal mood. ABSENT: homicidal ideation, suicidal ideation Results Laboratory Results: 06/30/20 05:40 07/01/20 05:59 07/01/20 05:59 Sodium 135.7 L Potassium 4.6 Chloride 103 Carbon Dioxide 24 Anion Gap 9 BUN 50 H Creatinine 1.74 H Est GFR ( Amer) 37 L Glucose 98 Calcium 9.1 Total Bilirubin 0.5 AST 19 Alkaline Phosphatase 43 Total Protein 7.8 Albumin 4.3 06/26/20 06/26/20 06/26/20 17:52 17:52 22:47 Creatine Kinase 69 CK-MB (CK-2) 0.89 Troponin I 0.028 0.030 Impressions: Chest X-Ray 06/26/20 17:39 IMPRESSION: NO ACUTE RADIOGRAPHIC FINDING IN THE CHEST. Chest/Abdomen CTA 06/26/20 17:46 IMPRESSION: No evidence of pulmonary embolus. The aorta is of normal caliber without aneurysm or dissection. . Head CT 06/26/20 19:34 IMPRESSION: 1. No acute hemorrhage or mass effect 2. Atherosclerosis Vascular Ultrasound 06/28/20 00:00 IMPRESSION: Findings consistent with hemodynamically significant right renal artery stenosis. Assessment and Plan - Diagnosis (1) Hypertensive emergency without congestive heart failure Is this a current diagnosis for this admission?: Yes Plan: Started on IV Cardene on admission and transitioned off of this to a very small dose of lisinopril which was inadequate for control and meds were increased many times thereafter. Currently requiring 4 antihypertensives at rising doses BP trends significantly improved Aldosterone/renin ratio pending Possible hypothyroidism component, started Synthroid at low dose 06/29/2020-patient blood pressure is still high 180/96 this morning. Patient has right-sided renal artery stenosis. Patient is on hydralazine 50 mg p.o. every 6 hours, lisinopril 20 mg p.o. daily, nifedipine 60 mg p.o. daily, chlorthalidone 25 mg p.o. daily. Plan is to add clonidine patch q. weekly, to increase hydralazine 100 mg p.o. 3 times daily, to increase lisinopril to 40 mg daily. And is to continue to closely monitor the blood pressures at this time. 06/30/2020-today's blood pressure is 164/78. Presently on hydralazine 100 mg p.o. 3 times daily, lisinopril 40 mg daily, nifedipine 60 mg p.o. daily, chlorthalidone 25 mg p.o. daily, clonidine 0.1 mg patch q. weekly. Creatinine increased from 0.63-1.38 today. Plan is to change her lisinopril to 20 mg p.o. twice daily. If the creatinine is continued to trend up may be we have to discontinue lisinopril. Plan is to consult nephrology tomorrow. 07/01/2020-blood pressure this morning is 118/74. Presently on hydralazine 100 mg p.o. 3 times daily, lisinopril 20 mg p.o. twice daily, nifedipine 60 mg p.o. daily, chlorthalidone 25 mg p.o. daily, clonidine patch 0.1 mg q. weekly. Creatinine went up to 1.74 today. Blood pressure is 118/74 plan is to decrease the dose of lisinopril to 5 mg p.o. twice a day and to recheck the labs tomorrow. (2) Renal artery stenosis Is this a current diagnosis for this admission?: Yes Plan: Seen on renal artery ultrasound, right has hemodynamically significant stenosis Needs outpatient referral to vascular surgery in [facility] for possible angioplasty Likely the source of severe uncontrolled hypertension 06/29/2020-blood pressure is still high despite being on 4 antihypertensives. Clonidine patch is added today, lisinopril dose is increased to 40 mg p.o. daily, hydralazine dose is increased to 100 mg every 8 hours. Plan is to closely monitor the blood pressures at this time. As per nephrology patient needs to see vascular surgeon as an outpatient in [place]. 06/30/2020-this morning blood pressure is 164/76. Patient is on 5 antihypertensives. Creatinine bumped from 0.63 to 1.38 today. Plan is to recheck the labs tomorrow. 07/01/2020-blood pressure is 118/74 but the creatinine went up to 1.74. Plan is to decrease the dose of lisinopril to 5 mg p.o. twice daily and to recheck the renal function tomorrow. (3) Hypothyroidism Is this a current diagnosis for this admission?: Yes Plan: TSH 10, T4 lower limit normal Start Synthroid 25 mcg 06/30/2020-TSH is 10 and she is on Synthyroid 25 mcg p.o. daily. (4) Tobacco abuse Is this a current diagnosis for this admission?: No Plan: 06/29/2020-patient is a chronic daily day smoker smoking counseling was provided for more than 15 minutes. - Time Anticipated Discharge Disposition: Home, Self Care Anticipated Discharge Timeframe: within 48 hours
[2020-07-01] MEDS: NIFEDIPINE 30 MG TAB.ER.24 PO SCH (09:57)
[2020-07-01] MEDS: LISINOPRIL 10 MG TABLET PO SCH ×2 (09:57→18:00)
[2020-07-01] MEDS: FLUTICASONE/VILANTEROL 100-25 MCG/DOSE IH SCH (09:57)
[2020-07-01] MEDS: NICOTINE 21 MG/24 HR PATCH.TD24 TD SCH (09:58)
[2020-07-01] MEDS: CHLORTHALIDONE 25 MG TABLET PO SCH (09:58)
[2020-07-01] MEDS: ACETAMINOPHEN 325 MG TABLET PO PRN (21:16)
[2020-07-02] MEDS: LEVOTHYROXINE SODIUM 0.025 MG TABLET PO SCH (05:44)
[2020-07-02] MEDS: HYDRALAZINE HCL 50 MG TABLET PO SCH ×3 (05:44→21:15)
[2020-07-02 06:44] LABS: ABSOLUTE BASOPHILS # (AUTO) 0.1 10^3/uL (0.0-0.2); ABSOLUTE EOSINOPHILS # (AUTO) 0.2 10^3/uL (0.0-0.6); ABSOLUTE LYMPHOCYTES (AUTO) 2.4 10^3/uL (0.5-4.7); ABSOLUTE NEUT (AUTO) 5.3 10^3/uL (1.7-8.2); BASOPHILS % (AUTO) 1.1 % (0-2); EOSINOPHILS % (AUTO) 2.3 % (0-6); HEMATOCRIT 38.5 % (36.0-47.0); HEMOGLOBIN 12.3 g/dL (12.0-15.5); LYMPHOCYTES % (AUTO) 26.5 % (13-45); MEAN CORPUSCULAR HGB CONC 32.1 g/dL (32.0-36.0); MEAN CORPUSCULAR VOLUME 59 fl (80-97); PLATELET COUNT 154 10^3/uL (150-450); RED CELL DISTRIBUTION WIDTH 17.1 % (11.5-14.0); SEGMENTED NEUTROPHILS % (AUTO) 59.1 % (42-78); TOTAL CELLS COUNTED % (AUTO) 100 %
[2020-07-02 07:02] LABS: ALBUMIN 4.2 g/dL (3.5-5.0); ALKALINE PHOSPHATASE 42 U/L (38-126); ANION GAP 8 (5-19); ASPARTATE AMINO TRANSFERASE 20 U/L (14-36); BILIRUBIN,TOTAL 0.5 mg/dL (0.2-1.3); BLOOD UREA NITROGEN 51 mg/dL (7-20); CALCIUM 9.1 mg/dL (8.4-10.2); CARBON DIOXIDE 23 mmol/L (22-30); CHLORIDE 104 mmol/L (98-107); GLUCOSE 95 mg/dL (75-110); POTASSIUM 4.8 mmol/L (3.6-5.0); TOTAL PROTEIN 7.6 g/dL (6.3-8.2)
[2020-07-02 07:40] LABS: POLYCHROMASIA SLIGHT
[2020-07-02 07:41] LABS: ANISOCYTOSIS 1+; OVALOCYTES 2+; PLATELET COMMENT ADEQUATE; TARGET CELLS 1+; TEAR DROP CELLS 1+
[2020-07-02 07:47] LABS: HYPOCHROMASIA 2+
[2020-07-02] MEDS: NIFEDIPINE 30 MG TAB.ER.24 PO SCH (09:29)
[2020-07-02] MEDS: CHLORTHALIDONE 25 MG TABLET PO SCH (09:30)
[2020-07-02] MEDS: LISINOPRIL 10 MG TABLET PO SCH ×2 (09:30→17:23)
[2020-07-02] MEDS: FLUTICASONE/VILANTEROL 100-25 MCG/DOSE IH SCH (09:31)
[2020-07-02] MEDS: NICOTINE 21 MG/24 HR PATCH.TD24 TD SCH (09:31)
[2020-07-02 13:16] LABS: ANION GAP 8 (5-19); BLOOD UREA NITROGEN 49 mg/dL (7-20); CALCIUM 9.2 mg/dL (8.4-10.2); CARBON DIOXIDE 24 mmol/L (22-30); CHLORIDE 102 mmol/L (98-107); GLUCOSE 157 mg/dL (75-110); POTASSIUM 4.5 mmol/L (3.6-5.0)
--- NOTE | 2020-07-02 17:15 | PDOC PROGRESS REPORT ---
Subjective Progress Note for:: 07/02/20 Subjective:: Blood pressure still notably elevated but the trend is slowly coming down today. Order renal artery PVL which revealed hemodynamically significant right renal artery stenosis. I discussed the case with nephrology who stated the patient could have this corrected with angioplasty in [place] at [facility] as an outpatient procedure provided we can get the patient's blood pressure under control consistently enough for her to be discharged. Also of note, her TSH was elevated to 10 and T4 was lower limit normal. As this can cause severe abnormalities in blood pressure including uncontrolled hypertension, I have started her on low-dose Synthroid 25 mcg. Echocardiogram ordered but not resulted yet. I started nebulizer treatments and scheduled Breo to help with her very likely underlying COPD. Patient will need follow-up with PCP for all these problems after discharge. Her headache seems to be better and she has no new complaints today. 07/02/2020 Creatinine improved but not back at baseline. We will continue trending BMP. Blood pressure significantly improved now on 5 drug regimen. Recheck a BMP today did not show much additional improvement from this morning. We will keep patient 1 more day and hopefully discharge tomorrow morning if creatinine continues to improve. We will cut lisinopril down to 20 mg daily. Patient has no new complaints today. Reason For Visit: HYPERTENSIVE URGENCY Physical Exam Vital Signs: Temp Pulse Resp BP Pulse Ox 97.5 F 67 20 130/64 H 99 07/02/20 12:09 07/02/20 14:00 07/02/20 12:09 07/02/20 12:09 07/02/20 12:09 Intake & Output 07/01/20 07/02/20 07/03/20 06:59 06:59 06:59 Intake Total 345 1420 Balance 345 1420 Weight 75 kg 77.6 kg 77.6 kg General appearance: PRESENT: no acute distress, well-developed, well-nourished Head exam: PRESENT: atraumatic, normocephalic Eye exam: PRESENT: conjunctiva pink Mouth exam: PRESENT: moist Respiratory exam: PRESENT: clear to auscultation manfred. ABSENT: rales, rhonchi, wheezes Cardiovascular exam: PRESENT: RRR. ABSENT: diastolic murmur, rubs, systolic murmur GI/Abdominal exam: PRESENT: normal bowel sounds, soft. ABSENT: distended, guarding, mass, organolmegaly, rebound, tenderness Neurological exam: PRESENT: alert, awake Skin exam: PRESENT: dry, intact, warm Results Laboratory Results: 07/02/20 05:57 07/02/20 12:32 07/02/20 07/02/20 07/02/20 05:57 05:57 12:32 WBC 9.0 RBC 6.50 H Hgb 12.3 Hct 38.5 MCV 59 L MCH 19.0 L MCHC 32.1 RDW 17.1 H Plt Count 154 Seg Neutrophils % 59.1 Sodium 135.1 L 134.2 L Potassium 4.8 4.5 Chloride 104 102 Carbon Dioxide 23 24 Anion Gap 8 8 BUN 51 H 49 H Creatinine 1.39 H 1.34 H Est GFR ( Amer) 48 L 50 L Glucose 95 157 H Calcium 9.1 9.2 Magnesium 2.6 H Total Bilirubin 0.5 AST 20 Alkaline Phosphatase 42 Total Protein 7.6 Albumin 4.2 06/26/20 06/26/20 06/26/20 17:52 17:52 22:47 Creatine Kinase 69 CK-MB (CK-2) 0.89 Troponin I 0.028 0.030 Impressions: Chest X-Ray 06/26/20 17:39 IMPRESSION: NO ACUTE RADIOGRAPHIC FINDING IN THE CHEST. Chest/Abdomen CTA 06/26/20 17:46 IMPRESSION: No evidence of pulmonary embolus. The aorta is of normal caliber without aneurysm or dissection. . Head CT 06/26/20 19:34 IMPRESSION: 1. No acute hemorrhage or mass effect 2. Atherosclerosis Vascular Ultrasound 06/28/20 00:00 IMPRESSION: Findings consistent with hemodynamically significant right renal artery stenosis. Assessment and Plan - Diagnosis (1) Hypertensive emergency without congestive heart failure Is this a current diagnosis for this admission?: Yes Plan: Started on IV Cardene on admission and transitioned off of this to a very small dose of lisinopril which was inadequate for control and meds were increased many times thereafter. Currently requiring 4 antihypertensives at rising doses BP trends significantly improved Aldosterone/renin ratio pending Possible hypothyroidism component, started Synthroid at low dose 06/29/2020-patient blood pressure is still high 180/96 this morning. Patient has right-sided renal artery stenosis. Patient is on hydralazine 50 mg p.o. every 6 hours, lisinopril 20 mg p.o. daily, nifedipine 60 mg p.o. daily, chlorthalidone 25 mg p.o. daily. Plan is to add clonidine patch q. weekly, to increase hydralazine 100 mg p.o. 3 times daily, to increase lisinopril to 40 mg daily. And is to continue to closely monitor the blood pressures at this time. 06/30/2020-today's blood pressure is 164/78. Presently on hydralazine 100 mg p.o. 3 times daily, lisinopril 40 mg daily, nifedipine 60 mg p.o. daily, chlorthalidone 25 mg p.o. daily, clonidine 0.1 mg patch q. weekly. Creatinine increased from 0.63-1.38 today. Plan is to change her lisinopril to 20 mg p.o. twice daily. If the creatinine is continued to trend up may be we have to discontinue lisinopril. Plan is to consult nephrology tomorrow. 07/01/2020-blood pressure this morning is 118/74. Presently on hydralazine 100 mg p.o. 3 times daily, lisinopril 20 mg p.o. twice daily, nifedipine 60 mg p.o. daily, chlorthalidone 25 mg p.o. daily, clonidine patch 0.1 mg q. weekly. Creatinine went up to 1.74 today. Blood pressure is 118/74 plan is to decrease the dose of lisinopril to 5 mg p.o. twice a day and to recheck the labs tomorrow. 07/02/2020 Blood pressure approximately at goal for the most part 5 drug regimen Reduced lisinopril dosing for continued TEDDY, may need to stop altogether and use an alternative agent until creatinine is back to baseline (2) Renal artery stenosis Is this a current diagnosis for this admission?: Yes Plan: Seen on renal artery ultrasound, right has hemodynamically significant stenosis Needs outpatient referral to vascular surgery in [facility] for possible angioplasty Likely the source of severe uncontrolled hypertension 06/29/2020-blood pressure is still high despite being on 4 antihypertensives. Clonidine patch is added today, lisinopril dose is increased to 40 mg p.o. daily, hydralazine dose is increased to 100 mg every 8 hours. Plan is to closely monitor the blood pressures at this time. As per nephrology patient needs to see vascular surgeon as an outpatient in [place]. 06/30/2020-this morning blood pressure is 164/76. Patient is on 5 antihypertensives. Creatinine bumped from 0.63 to 1.38 today. Plan is to recheck the labs tomorrow. 07/01/2020-blood pressure is 118/74 but the creatinine went up to 1.74. Plan is to decrease the dose of lisinopril to 5 mg p.o. twice daily and to recheck the renal function tomorrow. 07/02/2020 We will follow-up with vascular surgery in [place] outpatient (3) COPD (chronic obstructive pulmonary disease) Is this a current diagnosis for this admission?: Yes (4) Tobacco abuse Is this a current diagnosis for this admission?: No (5) Hypothyroidism Is this a current diagnosis for this admission?: Yes (6) TEDDY (acute kidney injury) Is this a current diagnosis for this admission?: Yes Plan: Possibly at least in part due to right renal artery stenosis which is hemodynamically significant on imaging May continue to have mild renal dysfunction until right renal artery is corrected with surgery/angioplasty Trend BMP, baseline creatinine approximately 0.7 - Time Time Spent with patient: 15-24 minutes Medications reviewed and adjusted accordingly: Yes Anticipated Discharge Disposition: Home, Self Care Anticipated Discharge Timeframe: within 48 hours - Inpatient Certification Based on my medical assessment, after consideration of the patient's comorbidities, presenting symptoms, or acuity I expect that the services needed warrant INPATIENT care.: Yes I certify that my determination is in accordance with my understanding of Medicare's requirements for reasonable and necessary INPATIENT services [42 CFR 412.3e].: Yes Medical Necessity: Significant Comorbidiites Make Outpatient Treatment Too Risky, Need Close Monitoring Due to Risk of Patient Decompensation, Risk of Complication if Not Cared For in Hospital, Risk of Diagnosis Which Will Require Inpatient Eval/Care/Monitoring
[2020-07-02] MEDS ORDERED: LORAZEPAM INJ 2 MG/1 ML VIAL IV PRN (22:15)
[2020-07-03] MEDS: LEVOTHYROXINE SODIUM 0.025 MG TABLET PO SCH (05:34)
[2020-07-03] MEDS: HYDRALAZINE HCL 50 MG TABLET PO SCH ×2 (05:34→15:05)
[2020-07-03 07:07] LABS: ALDOSTERONE RENIN RATIO 2 0.6 (0.0-30.0); RENIN ACTIVITY 13.962 ng/mL/hr (0.167-5.38)
[2020-07-03] MEDS: NIFEDIPINE 30 MG TAB.ER.24 PO SCH (10:47)
[2020-07-03] MEDS: LISINOPRIL 10 MG TABLET PO SCH (10:48)
[2020-07-03] MEDS: NICOTINE 21 MG/24 HR PATCH.TD24 TD SCH (10:49)
[2020-07-03] MEDS: CHLORTHALIDONE 25 MG TABLET PO SCH (11:05)
[2020-07-03] MEDS: FLUTICASONE/VILANTEROL 100-25 MCG/DOSE IH SCH (11:05)
[2020-07-03 11:20] LABS: ANION GAP 11 (5-19); BLOOD UREA NITROGEN 48 mg/dL (7-20); CALCIUM 9.3 mg/dL (8.4-10.2); CARBON DIOXIDE 23 mmol/L (22-30); CHLORIDE 102 mmol/L (98-107); GLUCOSE 128 mg/dL (75-110); POTASSIUM 4.6 mmol/L (3.6-5.0)
--- NOTE | 2020-07-03 15:14 | PDOC DISCHARGE SUMMARY ---
Impression - Admit/DC Date/PCP Admission Date/Primary Care Provider: 06/27/20 02:08 Discharge Date: 07/03/20 - Discharge Diagnosis (1) Hypertensive emergency without congestive heart failure Is this a current diagnosis for this admission?: Yes (2) Renal artery stenosis Is this a current diagnosis for this admission?: Yes (3) COPD (chronic obstructive pulmonary disease) Is this a current diagnosis for this admission?: Yes (4) Tobacco abuse Is this a current diagnosis for this admission?: No (5) Hypothyroidism Is this a current diagnosis for this admission?: Yes (6) TEDDY (acute kidney injury) Is this a current diagnosis for this admission?: Yes - Additional Information Discharge Diet: As Tolerated, Cardiac Discharge Activity: Activity As Tolerated, Balance Activity w/Rest Ref[facility]: [facility] [NO LOCAL MD] - Prescriptions: Hydralazine HCl [Apresoline 50 mg Tablet] 100 mg PO Q8 #180 tablet Fluticasone/Vilanterol [Breo 100-25 Mcg Ellipta 14 Dose/Dpi] 1 inh IH DAILY #1 inhaler Clonidine [Catapres-Tts 2 (0.2 mg/24 Hr) Transderm Ptch] 1 each TD Sa@10 #4 patch.tdwk Chlorthalidone [Hygroton 25 mg Tablet] 25 mg PO DAILY #30 tablet Lisinopril [Prinivil 10 mg Tablet] 5 mg PO BID #15 tablet Nifedipine [Procardia XL 30 mg Tablet] 60 mg PO DAILY #60 tab.er.24 Levothyroxine Sodium [Synthroid 0.025 mg Tablet] 0.025 mg PO Q6AM #30 tablet Home Medications: Chlorthalidone [Hygroton 25 mg Tablet] 25 mg PO DAILY #30 tablet 07/03/20 Clonidine [Catapres-Tts 2 (0.2 mg/24 Hr) Transderm Ptch] 1 each TD Sa@10 #4 patch.tdwk 07/03/20 Fluticasone/Vilanterol [Breo 100-25 Mcg Ellipta 14 Dose/Dpi] 1 inh IH DAILY #1 inhaler 07/03/20 Hydralazine HCl [Apresoline 50 mg Tablet] 100 mg PO Q8 #180 tablet 07/03/20 Levothyroxine Sodium [Synthroid 0.025 mg Tablet] 0.025 mg PO Q6AM #30 tablet 07/03/20 Lisinopril [Prinivil 10 mg Tablet] 5 mg PO BID #15 tablet 07/03/20 Nifedipine [Procardia XL 30 mg Tablet] 60 mg PO DAILY #60 tab.er.24 07/03/20 History of Present Illiness History of Present Illness: Per Admitting Physician: "SHU GONZALES is a 49 year old female headache and general malaise and generalized nonspecific diffuse chest discomfort. Apparently have been going on for a couple of days. No fever. No cough or shortness of breath. No abdominal pain, nausea, or vomiting. She came to the ER and had extremely high blood pressure with a systolic in the 230s. CTA of the chest was negative for PE or dissection. EKG was suggestive of LVH but no signs of acute ischemia. I called the ICU and rather than admit the patient in the ICU decided to give her multiple doses of IV medications and even put her on a Cardene drip for several hours. When her blood pressure came down, they said she did not need to be in the ICU anymore. The hospitalist service was then consulted for admission." Hospital Course Hospital Course: Patient admitted for hypertensive emergency with TEDDY. Many oral medications started with gradually increasing doses until BP at goal on day of discharge. Patient also developed TEDDY which resolved. Patient was found to have renal artery stenosis on the right for which she will need outpatient vascular surgery evaluation in [place]. Patient found to be hypothyroid with TSH of 10, started on low-dose Synthroid and her thyroid studies will need to be rechecked at outpatient follow-up appointment with her PCP. Patient was not treated for COPD prior to this admission and had notable chronic wheezing, started on Breo. (1) Hypertensive emergency without congestive heart failure Is this a current diagnosis for this admission?: Yes Plan: Started on IV Cardene on admission and transitioned off of this to a very small dose of lisinopril which was inadequate for control and meds were increased many times thereafter. Currently requiring 4 antihypertensives at rising doses BP trends significantly improved Aldosterone/renin ratio pending Possible hypothyroidism component, started Synthroid at low dose 06/29/2020-patient blood pressure is still high 180/96 this morning. Patient has right-sided renal artery stenosis. Patient is on hydralazine 50 mg p.o. every 6 hours, lisinopril 20 mg p.o. daily, nifedipine 60 mg p.o. daily, chlorthalidone 25 mg p.o. daily. Plan is to add clonidine patch q. weekly, to increase hydralazine 100 mg p.o. 3 times daily, to increase lisinopril to 40 mg daily. And is to continue to closely monitor the blood pressures at this time. 06/30/2020-today's blood pressure is 164/78. Presently on hydralazine 100 mg p.o. 3 times daily, lisinopril 40 mg daily, nifedipine 60 mg p.o. daily, chlorthalidone 25 mg p.o. daily, clonidine 0.1 mg patch q. weekly. Creatinine increased from 0.63-1.38 today. Plan is to change her lisinopril to 20 mg p.o. twice daily. If the creatinine is continued to trend up may be we have to discontinue lisinopril. Plan is to consult nephrology tomorrow. 07/01/2020-blood pressure this morning is 118/74. Presently on hydralazine 100 mg p.o. 3 times daily, lisinopril 20 mg p.o. twice daily, nifedipine 60 mg p.o. daily, chlorthalidone 25 mg p.o. daily, clonidine patch 0.1 mg q. weekly. Creatinine went up to 1.74 today. Blood pressure is 118/74 plan is to decrease the dose of lisinopril to 5 mg p.o. twice a day and to recheck the labs tomorrow. 07/02/2020 Blood pressure approximately at goal for the most part 5 drug regimen Reduced lisinopril dosing for continued TEDDY, may need to stop altogether and use an alternative agent until creatinine is back to baseline (2) Renal artery stenosis Is this a current diagnosis for this admission?: Yes Plan: Seen on renal artery ultrasound, right has hemodynamically significant stenosis Needs outpatient referral to vascular surgery in [facility] for possible angioplasty Likely the source of severe uncontrolled hypertension 06/29/2020-blood pressure is still high despite being on 4 antihypertensives. Clonidine patch is added today, lisinopril dose is increased to 40 mg p.o. daily, hydralazine dose is increased to 100 mg every 8 hours. Plan is to closely monitor the blood pressures at this time. As per nephrology patient needs to see vascular surgeon as an outpatient in [place]. 06/30/2020-this morning blood pressure is 164/76. Patient is on 5 antihypertensives. Creatinine bumped from 0.63 to 1.38 today. Plan is to recheck the labs tomorrow. 07/01/2020-blood pressure is 118/74 but the creatinine went up to 1.74. Plan is to decrease the dose of lisinopril to 5 mg p.o. twice daily and to recheck the renal function tomorrow. 07/02/2020 We will follow-up with vascular surgery in [place] outpatient (3) COPD (chronic obstructive pulmonary disease) Is this a current diagnosis for this admission?: Yes (4) Tobacco abuse Is this a current diagnosis for this admission?: No (5) Hypothyroidism Is this a current diagnosis for this admission?: Yes (6) TEDDY (acute kidney injury) Is this a current diagnosis for this admission?: Yes Plan: Possibly at least in part due to right renal artery stenosis which is hemodynamically significant on imaging May continue to have mild renal dysfunction until right renal artery is corrected with surgery/angioplasty Trend BMP, baseline creatinine approximately 0.7 Physical Exam Vital Signs: Temp Pulse Resp BP Pulse Ox 97.9 F 62 16 127/60 H 97 07/03/20 07:45 07/03/20 07:45 07/03/20 07:45 07/03/20 07:45 07/03/20 07:45 Intake & Output 07/02/20 07/03/20 07/04/20 06:59 06:59 06:59 Intake Total 1420 500 Balance 1420 500 Weight 77.6 kg 74.2 kg General appearance: PRESENT: no acute distress, well-developed, well-nourished Head exam: PRESENT: atraumatic, normocephalic Eye exam: PRESENT: conjunctiva pink Mouth exam: PRESENT: moist Respiratory exam: PRESENT: clear to auscultation manfred. ABSENT: rales, rhonchi, wheezes Cardiovascular exam: PRESENT: RRR. ABSENT: diastolic murmur, rubs, systolic murmur GI/Abdominal exam: PRESENT: normal bowel sounds, soft. ABSENT: distended, guarding, mass, organolmegaly, rebound, tenderness Neurological exam: PRESENT: alert, awake, oriented to person, oriented to place, oriented to time, oriented to situation Psychiatric exam: PRESENT: appropriate affect, normal mood Skin exam: PRESENT: dry, intact, warm Results Laboratory Results: WBC 9.0 10^3/uL (4.0-10.5) 07/02/20 05:57 RBC 6.50 10^6/uL (3.72-5.28) H 07/02/20 05:57 Hgb 12.3 g/dL (12.0-15.5) 07/02/20 05:57 Hct 38.5 % (36.0-47.0) 07/02/20 05:57 MCV 59 fl (80-97) L 07/02/20 05:57 MCH 19.0 pg (27.0-33.4) L 07/02/20 05:57 MCHC 32.1 g/dL (32.0-36.0) 07/02/20 05:57 RDW 17.1 % (11.5-14.0) H 07/02/20 05:57 Plt Count 154 10^3/uL (150-450) 07/02/20 05:57 Lymph % (Auto) 26.5 % (13-45) 07/02/20 05:57 [place] % (Auto) 11.0 % (3-13) 07/02/20 05:57 Eos % (Auto) 2.3 % (0-6) 07/02/20 05:57 Baso % (Auto) 1.1 % (0-2) 07/02/20 05:57 Absolute Neuts (auto) 5.3 10^3/uL (1.7-8.2) 07/02/20 05:57 Absolute Lymphs (auto) 2.4 10^3/uL (0.5-4.7) 07/02/20 05:57 Absolute Monos (auto) 1.0 10^3/uL (0.1-1.4) 07/02/20 05:57 Absolute Eos (auto) 0.2 10^3/uL (0.0-0.6) 07/02/20 05:57 Absolute Basos (auto) 0.1 10^3/uL (0.0-0.2) 07/02/20 05:57 Seg Neutrophils % 59.1 % (42-78) 07/02/20 05:57 Large Platelets PRESENT 07/31/20 06:20 Platelet Comment ADEQUATE 07/02/20 05:57 Polychromasia SLIGHT 07/02/20 05:57 Hypochromasia 2+ 07/02/20 05:57 Anisocytosis 1+ 07/02/20 05:57 Microcytosis 4+ 07/02/20 05:57 Target Cells 1+ 07/02/20 05:57 Tear Drop Cells 1+ 07/02/20 05:57 Ovalocytes 2+ 07/02/20 05:57 Sodium 135.6 mmol/L (137-145) L 07/03/20 10:33 Potassium 4.6 mmol/L (3.6-5.0) 07/03/20 10:33 Chloride 102 mmol/L (98-107) 07/03/20 10:33 Carbon Dioxide 23 mmol/L (22-30) 07/03/20 10:33 Anion Gap 11 (5-19) 07/03/20 10:33 BUN 48 mg/dL (7-20) H 07/03/20 10:33 Creatinine 1.12 mg/dL (0.52-1.25) 07/03/20 10:33 Est GFR ( Amer) > 60 (>60) 07/03/20 10:33 Est GFR (MDRD) Non-Af 51 (>60) L 07/03/20 10:33 Glucose 128 mg/dL (75-110) H 07/03/20 10:33 POC Glucose 95 mg/dL (70-110) 07/03/20 11:29 Calcium 9.3 mg/dL (8.4-10.2) 07/03/20 10:33 Magnesium 2.6 mg/dL (1.6-2.3) H 07/02/20 05:57 Total Bilirubin 0.5 mg/dL (0.2-1.3) 07/02/20 05:57 Direct Bilirubin 0.0 mg/dL (0.0-0.4) 07/02/20 05:57 Neonat Total Bilirubin Not Reportable 07/02/20 05:57 Neonat Direct Bilirubin Not Reportable 07/02/20 05:57 Neonat Indirect Bili Not Reportable 07/02/20 05:57 AST 20 U/L (14-36) 07/02/20 05:57 ALT 20 U/L (<35) 07/02/20 05:57 Alkaline Phosphatase 42 U/L (38-126) 07/02/20 05:57 Creatine Kinase 69 U/L (30-135) 06/26/20 17:52 CK-MB (CK-2) 0.89 ng/mL (<4.55) 06/26/20 17:52 Troponin I 0.030 ng/mL 06/26/20 22:47 Total Protein 7.6 g/dL (6.3-8.2) 07/02/20 05:57 Albumin 4.2 g/dL (3.5-5.0) 07/02/20 05:57 Triglycerides 102 mg/dL (<150) 06/28/20 06:20 Cholesterol 197.92 mg/dL (0-200) 06/28/20 06:20 LDL Cholesterol Direct 123 mg/dL (<100) H 06/28/20 06:20 VLDL Cholesterol 20.0 mg/dL (10-31) 06/28/20 06:20 HDL Cholesterol 48 mg/dL (>40) 06/28/20 06:20 Renin Activity 13.962 ng/mL/hr (0.167-5.38) H 06/29/20 06:06 Aldosterone 8.6 ng/dL (0.0-30.0) 06/29/20 06:06 Aldosterone/Renin Ratio 0.6 (0.0-30.0) 06/29/20 06:06 TSH 10.00 uIU/mL (0.47-4.68) H 06/28/20 06:20 Free T4 0.82 ng/dL (0.78-2.19) 06/28/20 06:20 Urine Color YELLOW 06/26/20 19:40 Urine Appearance SLIGHTLY-CLOUDY 06/26/20 19:40 Urine pH 7.0 (5.0-9.0) 06/26/20 19:40 Ur Specific [place] 1.018 06/26/20 19:40 Urine Protein 100 mg/dL (NEGATIVE) H 06/26/20 19:40 Urine Glucose (UA) NEGATIVE mg/dL (NEGATIVE) 06/26/20 19:40 Urine Ketones NEGATIVE mg/dL (NEGATIVE) 06/26/20 19:40 Urine Blood NEGATIVE (NEGATIVE) 06/26/20 19:40 Urine Nitrite (Reflex) NEGATIVE (NEGATIVE) 06/26/20 19:40 Urine Bilirubin NEGATIVE (NEGATIVE) 06/26/20 19:40 Urine Urobilinogen 2.0 mg/dL (<2.0) H 06/26/20 19:40 Leukocyte Esterase Rfl NEGATIVE (NEGATIVE) 06/26/20 19:40 Urine RBC (Auto) 1 /HPF 06/26/20 19:40 Urine WBC (Reflex) 2 /HPF 06/26/20 19:40 Squamous Epi Cells Auto 1 /HPF 06/26/20 19:40 Urine Mucus (Auto) FEW /LPF 06/26/20 19:40 Urine Ascorbic Acid NEGATIVE (NEGATIVE) 06/26/20 19:40 Urine Opiates Screen NEGATIVE 06/26/20 19:40 Urine Methadone Screen NEGATIVE 06/26/20 19:40 Ur Barbiturates Screen NEGATIVE 06/26/20 19:40 Ur Phencyclidine Scrn NEGATIVE 06/26/20 19:40 Ur Amphetamines Screen NEGATIVE 06/26/20 19:40 U Benzodiazepines Scrn NEGATIVE 06/26/20 19:40 Urine Cocaine Screen NEGATIVE 06/26/20 19:40 U Marijuana (THC) Screen UNCONFIRMED POSITIVE 06/26/20 19:40 Slides for Path Review SEE COMMENT 06/26/20 17:52 06/26/20 06/26/20 17:52 22:47 CK-MB (CK-2) 0.89 Troponin I 0.028 0.030 Impressions: Chest X-Ray 06/26/20 17:39 IMPRESSION: NO ACUTE RADIOGRAPHIC FINDING IN THE CHEST. Chest/Abdomen CTA 06/26/20 17:46 IMPRESSION: No evidence of pulmonary embolus. The aorta is of normal caliber without aneurysm or dissection. . Head CT 06/26/20 19:34 IMPRESSION: 1. No acute hemorrhage or mass effect 2. Atherosclerosis Vascular Ultrasound 06/28/20 00:00 IMPRESSION: Findings consistent with hemodynamically significant right renal artery stenosis. Plan Time Spent: Greater than 30 Minutes Stroke Is this a Stroke Patient?: No Acute Heart Failure - Is this a Heart Failure Patient?: No
[2020-07-03 16:33] VITALS: BP 149/68
== END 2020-07-03 16:35 | disposition home or self-care (01) | DRG 305 ==
LOC: ER 16:55 → EH 06-27 01:13 → INTOOBSV 06-27 01:13 → OBSVTOIN 06-27 02:08 → 3S 06-27 03:46 → 5 07-02 19:33
PROVIDERS: ADMIT Family Medicine; ATTEND Internal Medicine
DX: I16.1 Hypertensive emergency (principal); N17.9 Acute kidney failure, unspecified; E03.9 Hypothyroidism, unspecified; J44.9 Chronic obstructive pulmonary disease, unspecified; I70.1 Atherosclerosis of renal artery; F17.200 Nicotine dependence, unspecified, uncomplicated; Z90.49 Acquired absence of other specified parts of digestive tract; Z82.49 Family history of ischemic heart disease and other diseases of the circulatory system; Z88.6 Allergy status to analgesic agent; Z88.1 Allergy status to other antibiotic agents; Z88.0 Allergy status to penicillin; F12.90 Cannabis use, unspecified, uncomplicated
CPT/HCPCS: 36415; 70450; 71046; 71275; 80048; 80053; 80061; 80307; 81001; 82088; 82550; 82553; 82962; 83735; 84244; 84439; 84443; 84484; 85025; 93005; 93010; 93306; 93976; 94640; 96365; 96375; 96376; 99291; J0360; J2270; J2405; J3490